=== PATIENT | male | born 1940 | race Caucasian/White ===

== ENCOUNTER 2016-07-29 16:12 | Outpatient (CLI) | payer MEDICARE, OTHER | END 2016-07-29 16:13 | disposition home or self-care (01) | DX: K52.9 Noninfective gastroenteritis and colitis, unspecified (principal) ==

== ENCOUNTER 2016-07-30 09:00 | Outpatient (CLI) | payer MEDICARE, OTHER | END 2016-07-30 09:01 | disposition home or self-care (01) | DX: K52.9 Noninfective gastroenteritis and colitis, unspecified (principal) ==

== ENCOUNTER 2017-02-24 07:30 | Emergency (ER) | payer MEDICARE, OTHER ==
--- NOTE | 2017-02-24 08:03 | ED Physician Documentation ---
History of Present Illness - Stated complaint Stated Complaint: LOW HEART RATE - Chief complaint Chief Complaint: Cardiac - Additonal information Additional information: hx from pt 76 male multiple myeloma s/p stem cell transplant Jul 2015 followed by [facility] ER today at his PMD recommendation pt tells me he a hx of afib in the distant past he is concerned he may be having a fib again, states last week his HR was as low at 41 and his BP is running higher than normal he has not had CP palp soa leg swelling etc no fever cough NVD has had some cramps in his left hand for a week thise concerns were addressed at [facility] clinic 02/16 and an EKG was done showing NSR with PVCs and pt was referred to cardiology and has an appt 04/02 pt called his PMD about this as well yesterday and pt states his PMD advised him to go to the ER for emergent evaluation yesterday and so he came in this morning Review of Systems Constitutional: denies: Fever, Chills Throat: denies: Sore throat Cardiac: denies: Chest pain / pressure, Palpitations Respiratory: denies: Dyspnea GI: denies: Abdominal Pain, Nausea, Vomiting Musculoskeletal: reports: Other (L hand cramps) Neurologic: denies: Generalized weakness Endocrine: denies: Easy bruising / bleeding Immunocompromised: reports: Immunocompromised (> 1 yr out from stem cell transplant) PD PAST MEDICAL HISTORY - Past Medical History Past Medical History: Yes Cardiovascular: Arrhythmia Respiratory: None Endocrine/Autoimmune: None GI: Ulcers : Benign prostate hypertrophy HEENT: None Psych: None Musculoskeletal: Osteoarthritis Derm: None - Past Surgical History General: Appendectomy, Colonoscopy, EGD Ortho: Arthroscopic surgery, Spine surgery, Other HEENT: Cataracts - Present Medications Home Medications: Ambulatory Orders Medication Instructions Recorded Confirmed Acetaminophen [Pain Reliever] 650 mg PO ONCE PRN 11/24/12 02/24/17 Cholecalciferol (Vitamin D3) 5,000 unit PO DAILY 11/24/12 02/24/17 [Vitamin D] Cyanocobalamin/Folic Acid [Vitamin 1 each PO DAILY 11/24/12 02/24/17 F08-Pcfuw Acid Tablet] Glucosamine Sulfate Dipot Chlr 1,500 mg PO DAILY 11/24/12 02/24/17 [Glucosamine] Dutasteride/Tamsulosin HCl [Zulema 0.4 mg PO DAILYWM 10/31/13 02/24/17 0.5-0.4 mg Capsule] Lenalidomide [Revlimid] 15 mg PO DAILY 11/07/15 02/24/17 Acyclovir [Zovirax] 800 mg PO BID 11/26/15 02/24/17 Potassium Chloride [K-Dur] 20 meq PO DAILY 11/26/15 02/24/17 Mv,Ca,Iron,Min/FA/Phytosterol 1 tab PO DAILY 03/17/16 02/24/17 [[facility] Special[facility] Heart Tab] - Allergies Allergies/Adverse Reactions: Allergies Allergy/AdvReac Type Severity Reaction Status Date / Time quinine Allergy Unknown Rash Uncoded 11/24/12 16:03 - Social History Does the pt smoke?: No Smoking Status: Never smoker PD ED PE NORMAL - Vitals Vital signs reviewed: Yes - Neck Neck: Supple, no meningeal sign - Cardiac Cardiac: RRR - Respiratory Respiratory: No respiratory distress, Clear bilaterally - Abdomen Abdomen: Soft, Non tender - Derm Derm: Normal color - Extremities Extremities: No deformity, No tenderness to palpate, Normal ROM s pain, No edema , No calf tenderness / cord (some tender to ant tibial region but no calf or popliteal TTP or cord), Other (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 deformity, 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, 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, thumbs up, [place] sign wrist ext, MSV intact) Results - Vitals Vitals: Vital Signs - 24 hr 02/24/17 02/24/17 07:36 07:39 Temperature 36.2 C L Heart Rate 65 Respiratory 18 Rate Blood Pressure 136/74 H O2 Saturation 98 Oxygen O2 Source Room air - EKG (time done) 0740 Rate: Rate (enter#) Rhythm: NSR [place]: Normal Intervals: Normal PA QRS: Normal Ischemia: Normal ST segments - Labs Labs: Laboratory Tests 02/24/17 02/24/17 02/24/17 07:50 07:50 07:50 WBC 2.8 L RBC 3.72 L Hgb 12.5 L Hct 36.6 L MCV 98.4 H MCH 33.7 H MCHC 34.3 RDW 15.3 H Plt Count 105 L MPV 7.4 Sodium 136 Potassium 4.1 Chloride 102 Carbon Dioxide 25 Anion Gap 9.0 BUN 15 Creatinine 1.0 Estimated GFR (MDRD) 73 L Glucose 115 H Calcium 8.7 Troponin I < 0.04 PD MEDICAL DECISION MAKING - ED course ED course: leukopenia, thrombocytopenia and anemia not new and baseline nl lytes and trop EKG and tele NSR will reassure pt not in a fib and dc with rec to contact PMD to ge event monitor to wear while he awaits his cardiac evaluation undure why L hand is cramping but it is not weak or numb or infected Departure - Departure Disposition: 01 Home, Self Care Clinical Impression: Normal sinus rhythm Condition: Good Follow-Up: Judd Atkins MD [Primary Care Provider] - Comments: In the ER today your heart was in a regular rhythm Your electrolytes were fine too. And the blood test for a heart attack was negative I think it is safe for you to go home at this time I recommend you contact your PMD to get a wear at home heart monitor to determine iof you are having periods of atrial fibrillation not "caught on tape " while you were in the ER. This information would be very helpful for your cardiology follow up on Apr 02 Return to the ER if worse in any way
[2017-02-24 08:21] LABS: BASOPHILS % (AUTO) 1.2 %; EOSINOPHILS # (AUTO) 0.2 10^3/uL (0.0-0.7); EOSINOPHILS % (AUTO) 6.1 %; HCT - HEMATOCRIT 36.6 % (42.0-52.0); HGB - HEMOGLOBIN 12.5 g/dL (14.0-18.0); LYMPHOCYTES # (AUTO) 0.4 10^3/uL (1.5-3.5); LYMPHOCYTES % (AUTO) 14.3 %; MEAN CORPUSCULAR HEMOGLOBIN 33.7 pg (27.0-31.0); MEAN CORPUSCULAR HGB CONC 34.3 g/dL (32.0-36.0); MEAN CORPUSCULAR VOLUME 98.4 fL (80.0-94.0); MEAN PLATELET VOLUME 7.4 fL (7.4-11.4); MONOCYTES # (AUTO) 0.2 10^3/uL (0.0-1.0); MONOCYTES % (AUTO) 7.7 %; NEUTROPHILS % (AUTO) 70.7 %; NUCLEATED RED BLOOD CELLS AUTO 0.1 /100WBC; RED BLOOD COUNT 3.72 10^6/uL (4.70-6.10); RED CELL DISTRIBUTION WIDTH 15.3 % (12.0-15.0); UNCORRECTED WHITE BLOOD COUNT 2.8 x10^3/uL; WHITE BLOOD COUNT 2.8 x10^3/uL (4.8-10.8)
[2017-02-24 08:24] LABS: CALCIUM 8.7 mg/dL (8.5-10.3); POTASSIUM 4.1 mmol/L (3.5-5.0)
[2017-02-24 09:02] LABS: PLATELET ESTIMATE, MANUAL DECREASED (<130,000) (NORMAL); PLATELET MORPHOLOGY NORMAL APPEARANCE (NORMAL)
[2017-02-24 09:09] VITALS: BP 111/72
== END 2017-02-24 09:11 | disposition home or self-care (01) ==
LOC: ED 07:30
DX: R00.8 Other abnormalities of heart beat (principal); R25.2 Cramp and spasm; C90.00 Multiple myeloma not having achieved remission; Z94.84 Stem cells transplant status; D72.819 Decreased white blood cell count, unspecified; D64.9 Anemia, unspecified; D69.6 Thrombocytopenia, unspecified
CPT/HCPCS: 36415; 80048; 84484; 85025; 93005; 99283; 99284

== ENCOUNTER 2017-12-01 11:24 | Outpatient (CLI) | payer MEDICARE, OTHER ==
--- NOTE | 2017-12-01 12:06 | XRAY Report ---
TWO-VIEW CHEST: 12/01/2017 CLINICAL INDICATION: Cough. COMPARISON: 08/29/2016 FINDINGS: Frontal and lateral views of the chest demonstrate a normal cardiac silhouette. Spinal stimulators and right subclavian port are stable. The lungs are hyperinflated, but clear. No effusion or pneumothorax is present. IMPRESSION: HYPERINFLATION, COMPATIBLE WITH COPD. NO EVIDENCE OF ACUTE CARDIOPULMONARY DISEASE. TD: 12/01/2017 12:05
== END 2017-12-01 11:25 | disposition home or self-care (01) ==
LOC: DI 11:24
PROVIDERS: ATTEND Internal Medicine
DX: R91.8 Other nonspecific abnormal finding of lung field (principal)
CPT/HCPCS: 71046

== ENCOUNTER 2017-12-02 10:33 | Emergency (ER) | payer MEDICARE, OTHER ==
--- NOTE | 2017-12-02 11:31 | XRAY Report ---
EXAM: LEFT RIB RADIOGRAPHY CHEST RADIOGRAPHY EXAM DATE: 12/02/2017 11:18 AM. CLINICAL HISTORY: Cough. Left intercostal pain. COMPARISON: Chest radiography 12/01/2017 and 10/29/2015. TECHNIQUE: AP and lateral views of the chest and 2 views of the ribs. 4 images are provided. FINDINGS: Bones: No fracture or bone lesion. Lungs: No focal consolidation. No pneumothorax. No pleural effusions. The lungs are hyperinflated. Mediastinum: Heart and mediastinal contours are unremarkable. Other: Right chest port catheter tip is in the SVC. Spinal stimulator leads project over T9. IMPRESSION: 1. Chest: No acute abnormality or significant change from prior. Probable COPD. 2. Ribs: No acute fracture. [facility] Referring Provider Line: [phone] SITE ID: [id number]
[2017-12-02] MEDS ORDERED: IPRATROPIUM/ALBUTEROL 3 ML NEB INH STA (13:10)
--- NOTE | 2017-12-02 13:14 | ED Physician Documentation ---
PD HPI URI - Stated complaint Stated Complaint: DIFF BREATHING - Chief complaint Chief Complaint: Resp - History obtained from History obtained from: Patient, Family - History of Present Illness Timing - onset: How many weeks ago (1) Timing duration: Weeks (1) Timing details: Gradual onset Pain level max: 3 Pain level now: 3 Associated symptoms: Nasal congestion, Rhinorrhea, Productive cough, Dyspnea ( mild). No: Fever, Chills, Sinus pain, Sore throat, Swollen nodes, Hemoptysis, Chest pain Contributing factors: Sick contact, Immunocompromised (MDS, multiple myeloma) Improves by: Rest Worsened by: Activity, Breathing Similar symptoms before: Diagnosis ("bronchitis") Recently seen: Clinic (for same, has been placed on levauin for the past week.) Review of Systems Ten Systems: 10 systems reviewed and negative Constitutional: denies: Fever, Chills Ears: denies: Ear pain Nose: reports: Rhinorrhea / runny nose, Congestion Throat: denies: Sore throat Cardiac: denies: Chest pain / pressure Respiratory: reports: Dyspnea, Cough, Wheezing GI: denies: Nausea, Vomiting : denies: Dysuria Skin: denies: Rash Musculoskeletal: denies: Neck pain, Back pain Neurologic: denies: Headache PD PAST MEDICAL HISTORY - Past Medical History Past Medical History: Yes Cardiovascular: Arrhythmia Respiratory: None Endocrine/Autoimmune: None GI: Ulcers : Benign prostate hypertrophy HEENT: None Psych: None Musculoskeletal: Osteoarthritis Derm: None - Past Surgical History General: Appendectomy, Colonoscopy, EGD Ortho: Arthroscopic surgery, Spine surgery, Other HEENT: Cataracts - Present Medications Home Medications: Ambulatory Orders Medication Instructions Recorded Confirmed Acetaminophen [Pain Reliever] 650 mg PO ONCE PRN 11/24/12 11/09/17 Cholecalciferol (Vitamin D3) 5,000 unit PO DAILY 11/24/12 11/09/17 [Vitamin D] Cyanocobalamin/Folic Acid [Vitamin 1 each PO DAILY 11/24/12 11/09/17 D23-Kdhin Acid Tablet] Glucosamine Sulfate Dipot Chlr 1,500 mg PO DAILY 11/24/12 11/09/17 [Glucosamine] Dutasteride/Tamsulosin HCl [Zulema 0.4 mg PO DAILYWM 10/31/13 11/09/17 0.5-0.4 mg Capsule] Lenalidomide [Revlimid] 10 mg PO DAILY 11/07/15 11/09/17 Acyclovir [Zovirax] 800 mg PO BID 11/26/15 11/09/17 Potassium Chloride [K-Dur] 20 meq PO DAILY 11/26/15 11/09/17 Mv,Ca,Iron,Min/FA/Phytosterol 1 tab PO DAILY 03/17/16 11/09/17 [[facility] Special[facility] Heart Tab] Lenalidomide [Revlimid] 5 mg PO DAILY 10/01/17 11/09/17 Albuterol Sulf [Ventolin Hfa 1 - 2 puffs INH Q4HR PRN #1 inhaler 12/02/17 Inhaler] Benzonatate [Tessalon Perle] 100 - 200 mg PO TID PRN #30 capsule 12/02/17 Cetirizine [ZyrTEC] 10 mg PO DAILY PRN #30 tablet 12/02/17 Hydrocodone/Chlorpheniramine 5 ml PO BID #120 ml 12/02/17 [Vituz Solution] - Allergies Allergies/Adverse Reactions: Allergies Allergy/AdvReac Type Severity Reaction Status Date / Time quinine Allergy Unknown Rash Uncoded 11/24/12 16:03 - Social History Does the pt smoke?: No Smoking Status: Never smoker PD ED PE NORMAL - Vitals Vital signs reviewed: Yes - General General: Alert and oriented X 3, No acute distress - HEENT HEENT: Moist mucous membranes - Neck Neck: Supple, no meningeal sign - Cardiac Cardiac: RRR - Respiratory Respiratory: No respiratory distress, Other (wheezing, rhonchi B) - Abdomen Abdomen: Soft, Non tender, Non distended - Derm Derm: Warm and dry - Extremities Extremities: No edema, No calf tenderness / cord - Neuro Neuro: Alert and oriented X 3 - Psych Psych: Normal mood, Normal affect Results - Vitals Vitals: Vital Signs - 24 hr 12/02/17 12/02/17 12/02/17 10:42 12:45 13:28 Temperature 36.8 C Heart Rate 96 96 93 Respiratory 18 20 22 Rate Blood Pressure 121/73 142/79 H O2 Saturation 93 98 12/02/17 12/02/17 14:12 14:48 Temperature Heart Rate 101 H 105 H Respiratory 24 20 Rate Blood Pressure 122/79 O2 Saturation 96 Oxygen O2 Source Room air - Labs Labs: Laboratory Tests 12/02/17 12/02/1718 13:15 13:15 13:15 WBC 2.1 L RBC 3.87 L Hgb 13.2 L Hct 38.3 L MCV 99.0 H MCH 34.2 H MCHC 34.6 RDW 15.1 H Plt Count 95 L MPV 6.9 L Neut # Not Reportable Lymph # Not Reportable [place] # Not Reportable Eos # Not Reportable Baso # Not Reportable Absolute Nucleated RBC Not Reportable Total Counted 100 Band Neuts % (Manual) 2 Reactive Lymphs % (Man) 4 Abnorm Lymph % (Manual) 0 Nucleated RBC % Not Reportable Neutrophils # (Manual) 1.1 L Lymphocytes # (Manual) 0.7 L Monocytes # (Manual) 0.2 Eosinophils # (Manual) 0.1 Basophils # (Manual) 0.0 Differential Comment MANUAL DIFFERENTIAL WBC Morphology 2+ TOXIC GRANULATION Sodium 129 L Potassium 4.0 Chloride 94 L Carbon Dioxide 26 Anion Gap 9.0 BUN 13 Creatinine 1.1 Estimated GFR (MDRD) 65 L Glucose 122 H Lactic Acid 1.7 Calcium 8.8 Total Bilirubin 1.6 H AST 44 H ALT 84 H Alkaline Phosphatase 77 Total Protein 7.7 Albumin 4.0 Globulin 3.7 Albumin/Globulin Ratio 1.1 Lipase 22 - Rads (name of study) cxr Radiology: Prelim report reviewed, EMP read contemporaneously, See rad report ( Chest: No acute abnormality or significant change from prior. Probable COPD. Ribs: no acute fracture) PD MEDICAL DECISION MAKING - ED course Complexity details: reviewed old records (clinic records from last week.), reviewed results, re-evaluated patient, considered differential, d/w patient, d/ w family ED course: Patient is a 77-year-old male with a history of myelodysplastic syndrome and multiple myeloma who is immunosuppressed, currently placed on Levaquin but states he is having a hard time breathing and increased coughing. He had diminished breath sounds bilaterally with wheezing and rhonchi. Significantly improved throughout the emergency department stay with nebulizer treatment. We will trial him on a short course of steroids as well as albuterol for home. We will also prescribe antitussives medication and follow-up closely with his doctor. States his white blood cell count is always low. States it is normal 1 point something. Patient is well-appearing, nontoxic. Afebrile. No hypoxia. No respiratory distress after treatment. Patient and family counseled regarding signs and symptoms for which I believe and urgent re- evaluation would be necessary. Patient with good understanding of and agreement to plan and is comfortable going home at this time This document was made in part using voice recognition software. While efforts are made to proofread this document, sound alike and grammatical errors may occur. Departure - Departure Disposition: 01 Home, Self Care Clinical Impression: Upper respiratory tract infection Qualifiers: URI type: unspecified viral URI Qualified Code(s): J06.9 - Acute upper respiratory infection, unspecified Condition: Good Instructions: ED Viral Syndrome Follow-Up: Yury Jung MD [Primary Care Provider] - Within 1 week Prescriptions: Albuterol Sulf [Ventolin Hfa Inhaler] 1 - 2 puffs INH Q4HR PRN #1 inhaler PRN Reason: Shortness Of Air/Wheezing Benzonatate [Tessalon Perle] 100 - 200 mg PO TID PRN #30 capsule PRN Reason: Cough Cetirizine [ZyrTEC] 10 mg PO DAILY PRN #30 tablet PRN Reason: Nasal Congestion Hydrocodone/Chlorpheniramine [Vituz Solution] 5 ml PO BID #120 ml Comments: Return if you worsen. Take all medications as prescribed. Do not drink alcohol or drive while on narcotic pain medicine. Note that many narcotic pain relievers also contain tylenol/acetaminophen. Please ensure that your total dose of acetaminophen from all sources does not exceed 3 grams (3000mg) per day. You may constipated on this medication, take a stool softener such as "Colace" twice a day while you are on it. Also recommend a [id number] laxative such as senna or MiraLAX any day that you do not have a bowel movement. If you received narcotic pain medication in the emergency department, do not drive or operate machinery for the next 24 hours. Discharge Date/Time: 12/02/17 14:53
[2017-12-02 13:24] LABS: BASOPHILS % (AUTO) 1.1 %; EOSINOPHILS % (AUTO) 4.3 %; HGB - HEMOGLOBIN 13.2 g/dL (14.0-18.0); LYMPHOCYTES % (AUTO) 23.2 %; MEAN CORPUSCULAR HEMOGLOBIN 34.2 pg (27.0-31.0); MEAN CORPUSCULAR HGB CONC 34.6 g/dL (32.0-36.0); MEAN PLATELET VOLUME 6.9 fL (7.4-11.4); MONOCYTES % (AUTO) 16.6 %; NEUTROPHILS % (AUTO) 54.8 %; PLT - PLATELET COUNT 95 10^3/uL (130-450); RED BLOOD COUNT 3.87 10^6/uL (4.70-6.10); RED CELL DISTRIBUTION WIDTH 15.1 % (12.0-15.0); WHITE BLOOD COUNT 2.1 x10^3/uL (4.8-10.8)
[2017-12-02 13:28] LABS: ABNORMAL LYMPHS % (MANUAL) 0 %
[2017-12-02 13:35] LABS: ALBUMIN/GLOBULIN RATIO 1.1 (1.0-2.2); BILIRUBIN,TOTAL 1.6 mg/dL (0.2-1.0); CALCIUM 8.8 mg/dL (8.5-10.3); CREATININE 1.1 mg/dL (0.6-1.2); TOTAL PROTEIN 7.7 g/dL (6.7-8.2)
[2017-12-02 13:51] LABS: BAND NEUTROPHILS % (MANUAL) 2 %; DIFFERENTIAL COMMENT MANUAL DIFFERENTIAL; EOSINOPHILS # (MANUAL) 0.1 10^3/uL (0-0.7); LYMPHOCYTES # (MANUAL) 0.7 10^3/uL (1.5-3.5); LYMPHOCYTES % (MANUAL) 30 %; MONOCYTES # (MANUAL) 0.2 10^3/uL (0.0-1.0); NEUTROPHILS # (MANUAL) 1.1 10^3/uL (1.5-6.6); NEUTROPHILS % (MANUAL) 52 %
[2017-12-02] MEDS ORDERED: ALBUTEROL NEB 2.5 MG/3 ML INH STA (14:07)
[2017-12-02] MEDS ORDERED: predniSONE 20 MG TABLET PO STA (14:37)
[2017-12-02 14:48] VITALS: BP 122/79
== END 2017-12-02 14:53 | disposition home or self-care (01) ==
LOC: ED 10:33
DX: J06.9 Acute upper respiratory infection, unspecified (principal); D46.9 Myelodysplastic syndrome, unspecified; C90.00 Multiple myeloma not having achieved remission
CPT/HCPCS: 36415; 71046; 71100; 80053; 83605; 83690; 85025; 94640; 94664; 99283; 99284; J7512

== ENCOUNTER 2017-12-28 11:33 | Outpatient (CLI) | payer MEDICARE, OTHER ==
--- NOTE | 2017-12-28 20:32 | XRAY Report ---
RIGHT RIBS: 12/28/2017 HISTORY: Posterior upper rib pain. FINDINGS: Two views of the right ribs are performed. No definite fracture, bone destruction, periosteal reaction or other acute right rib pathology. Port-A-Cath in place. Neural stimulator in the spine. Degenerative change in the spine. IMPRESSION: NEGATIVE RIGHT RIBS. TD: 12/28/2017 17:36
== END 2017-12-28 11:34 | disposition home or self-care (01) ==
LOC: DI 11:33
PROVIDERS: ATTEND Internal Medicine Hematology & Oncology
DX: R07.81 Pleurodynia (principal); C90.00 Multiple myeloma not having achieved remission

== ENCOUNTER 2018-04-12 10:37 | Emergency (ER) | payer MEDICARE, OTHER ==
[2018-04-12] MEDS ORDERED: BUFFERED LIDOCAINE 10 ML SYRINGE SUBQ ONE (12:03)
[2018-04-12] MEDS ORDERED: BUFFERED LIDOCAINE 10 ML SYRINGE ONE (12:04)
--- NOTE | 2018-04-12 12:05 | ED Physician Documentation ---
History of Present Illness - Stated complaint Stated Complaint: ABCESS ON LEFT ARM - Chief complaint Chief Complaint: Trauma Sunday - History obtained from History obtained from: Patient - History of Present Illness Timing: Other (He is only had a little bit of a lump on the left chest wall but became painful and inflamed 2 weeks ago. He was seen in clinic and put on some topical antibiotic but it continues to worsen. No fevers.) Review of Systems Constitutional: denies: Fever, Chills Ears: reports: Reviewed and negative GI: denies: Abdominal Pain, Nausea, Vomiting PD PAST MEDICAL HISTORY - Past Medical History Past Medical History: Yes Cardiovascular: Arrhythmia Respiratory: None Endocrine/Autoimmune: None GI: Ulcers : Benign prostate hypertrophy HEENT: None Psych: None Musculoskeletal: Osteoarthritis Derm: None - Past Surgical History Past Surgical History: Yes General: Appendectomy, Colonoscopy, EGD Ortho: Arthroscopic surgery, Spine surgery, Other HEENT: Cataracts - Present Medications Home Medications: Ambulatory Orders Medication Instructions Recorded Confirmed Acetaminophen [Pain Reliever] 650 mg PO ONCE PRN 11/24/12 04/12/18 Cholecalciferol (Vitamin D3) 5,000 unit PO DAILY 11/24/12 04/12/18 [Vitamin D] Cyanocobalamin/Folic Acid [Vitamin 1 each PO DAILY 11/24/12 04/12/18 A29-Ucsvu Acid Tablet] Glucosamine Sulfate Dipot Chlr 1,500 mg PO DAILY 11/24/12 04/12/18 [Glucosamine] Dutasteride/Tamsulosin HCl [Zulema 0.4 mg PO DAILYWM 10/31/13 04/12/18 0.5-0.4 mg Capsule] Acyclovir [Zovirax] 800 mg PO BID 11/26/15 04/12/18 Potassium Chloride [K-Dur] 20 meq PO DAILY 11/26/15 04/12/18 Mv,Ca,Iron,Min/FA/Phytosterol 1 tab PO DAILY 03/17/16 04/12/18 [[facility] Specialist Heart Tab] Lenalidomide [Revlimid] 5 mg PO DAILY 10/01/17 04/12/18 Albuterol Sulf [Ventolin Hfa 1 - 2 puffs INH Q4HR PRN #1 inhaler 12/02/17 04/12/18 Inhaler] Benzonatate [Tessalon Perle] 100 - 200 mg PO TID PRN #30 capsule 12/02/17 04/12/18 Cetirizine [ZyrTEC] 10 mg PO DAILY PRN #30 tablet 12/02/17 04/12/18 Hydrocodone/Chlorpheniramine 5 ml PO BID #120 ml 12/02/17 04/12/18 [Vituz Solution] Acyclovir 800 tab PO BID 04/12/18 04/12/18 Cephalexin [Keflex] 500 mg PO Q6H #28 capsule 04/12/18 Gabapentin [Gralise] 3 tab ORAL DAILY 04/12/18 04/12/18 Hydrocodone/Acetaminophen 1 - 2 each PO Q6H PRN #10 tablet 04/12/18 [Hydrocodon-Acetaminophen 5-325] Sulfamethoxazole/Trimethoprim 1 each PO BID #14 tablet 04/12/18 [Sulfamethoxazole-Tmp Ds Tablet] - Allergies Allergies/Adverse Reactions: Allergies Allergy/AdvReac Type Severity Reaction Status Date / Time quinine Allergy Unknown Rash Uncoded 04/12/18 10:53 - Social History Does the pt smoke?: No Smoking Status: Never smoker Does the pt drink ETOH?: No - Immunizations Immunizations are current?: Yes PD ED PE NORMAL - Vitals Vital signs reviewed: Yes - General General: Alert and oriented X 3, No acute distress - Derm Derm: Other (On the left lateral chest wall there appears to be an infected sebaceous cyst, about 3 x 2 cm with surrounding cellulitis) - Neuro Neuro: Alert and oriented X 3, Normal speech - Psych Psych: Normal mood, Normal affect Results - Vitals Vitals: Vital Signs - 24 hr 04/12/18 10:48 Temperature 36.2 C L Heart Rate 67 Respiratory 16 Rate Blood Pressure 116/74 O2 Saturation 94 Oxygen O2 Source Room air Procedures - Abscess I&D (location) L chest wall Preparation: Betadine, Lidocaine 1% Incision: Incised with scalpel, Purulent drainage (and sebum), Loculations broken, Packed (with 1/4 inch packing), Culture obtained Other: Pt tolerated well, Dressing applied, Antibiotic prescribed PD MEDICAL DECISION MAKING - Sepsis Event Vital Signs: Vital Signs - 24 hr 04/12/18 10:48 Temperature 36.2 C L Heart Rate 67 Respiratory 16 Rate Blood Pressure 116/74 O2 Saturation 94 Oxygen O2 Source Room air Departure - Departure Disposition: 01 Home, Self Care Clinical Impression: Abscess Condition: Good Record reviewed to determine appropriate education?: Yes Instructions: ED Abscess IandD Prescriptions: Cephalexin [Keflex] 500 mg PO Q6H #28 capsule Hydrocodone/Acetaminophen [Hydrocodon-Acetaminophen 5-325] 1 - 2 each PO Q6H PRN #10 tablet PRN Reason: pain Sulfamethoxazole/Trimethoprim [Sulfamethoxazole-Tmp Ds Tablet] 1 each PO BID #14 tablet Comments: We are performing a wound culture, the results should be done in 48-72 hours. If antibiotic change is necessary we will call you. Return if worse in the meantime, especially if you develop increased pain, fevers, cannot keep down the medication. Otherwise follow-up with your physician in approximately 2-3 days.
[2018-04-12 12:35] VITALS: BP 139/82
== END 2018-04-12 12:30 | disposition home or self-care (01) ==
LOC: ED 10:37
DX: L02.213 Cutaneous abscess of chest wall (principal); L03.313 Cellulitis of chest wall; L72.3 Sebaceous cyst
CPT/HCPCS: 10060; 87070; 87205; 99283

== ENCOUNTER 2018-08-09 15:21 | Outpatient (CLI) | payer MEDICARE, BC ==
[2018-08-09 18:19] LABS: HEMOGLOBIN A1C 0.33 g/dL; HEMOGLOBIN A1C % 5.5 % (4.6-6.2)
[2018-08-09 18:29] LABS: ALBUMIN/GLOBULIN RATIO 1.1 (1.0-2.2); BILIRUBIN,TOTAL 1.5 mg/dL (0.2-1.0); CALCIUM 9.1 mg/dL (8.5-10.3); CREATININE 0.9 mg/dL (0.6-1.2); TOTAL PROTEIN 7.7 g/dL (6.7-8.2)
== END 2018-08-09 15:22 | disposition home or self-care (01) ==
LOC: LAB.F 15:21
PROVIDERS: ATTEND Internal Medicine
DX: R35.8 Other polyuria (principal); N39.0 Urinary tract infection, site not specified
CPT/HCPCS: 36415; 80053; 83036; 87086; 87181

== ENCOUNTER 2018-10-25 13:34 | Emergency (ER) | payer MEDICARE, BC ==
[2018-10-25] MEDS ORDERED: DEXAMETHASONE 10 MG/ML VIAL PO STA (15:57)
[2018-10-25] MEDS ORDERED: BENZONATATE 100 MG CAPSULE PO STA (15:58)
[2018-10-25] MEDS ORDERED: CHERRY SYRUP 10 ML UDC PO ONE (16:11)
--- NOTE | 2018-10-25 16:48 | XRAY Report ---
Reason: cough Procedure Date: 10/25/2018 Accession Number: [id number] / [id number] Procedure: XR - Chest 2 View X-Ray CPT Code: 45606 FULL RESULT: EXAM: CHEST RADIOGRAPHY EXAM DATE: 10/25/2018 04:29 PM. CLINICAL HISTORY: Cough. COMPARISON: CHEST 1 VIEW 09/02/2018 11:11 AM. TECHNIQUE: 2 views. FINDINGS: Lungs/Pleura: Hyperexpanded with flattened diaphragm compatible with COPD. No definite acute infiltrate, consolidation, effusion, or pneumothorax. Mediastinum: Normal heart size, unchanged. Upper lobe vessels not distended. Other: Right Port-A-Cath. Degenerative changes and other chronic findings. IMPRESSION: No acute disease. [facility]
--- NOTE | 2018-10-25 16:52 | ED Physician Documentation ---
PD HPI URI - Stated complaint Stated Complaint: CONGESTED/CHEST PX - Chief complaint Chief Complaint: Resp - History obtained from History obtained from: Patient, Family - History of Present Illness Timing - onset: How many days ago (3) Timing duration: Days (3) Timing details: Gradual onset, Still present Associated symptoms: Fever, Nasal congestion, Rhinorrhea, Sinus pain, Productive cough Contributing factors: Sick contact Improves by: Rest, Medication Worsened by: Activity Similar symptoms before: Diagnosis (pneumonia) Recently seen: Other ([facility]) - Additional information Additional information: 78-year-old male patient of the [facility] clinic who has myeloproliferative disorder and is under treatment for this has developed URI symptoms 3 days ago. He has a cough he is producing some clear phlegm. He is scheduled to get a sub-q injection today at the [facility] clinic. He will need blood soon as well. Review of Systems Constitutional: denies: Fever Eyes: denies: Decreased vision Ears: denies: Ear pain Nose: reports: Rhinorrhea / runny nose, Congestion Throat: reports: Sore throat Cardiac: denies: Chest pain / pressure, Palpitations Respiratory: reports: Cough. denies: Dyspnea GI: denies: Abdominal Pain, Nausea, Vomiting : denies: Dysuria, Frequency PD PAST MEDICAL HISTORY - Past Medical History Past Medical History: Yes Cardiovascular: Arrhythmia Respiratory: None Neuro: None Endocrine/Autoimmune: None GI: Ulcers : Benign prostate hypertrophy HEENT: None Psych: None Musculoskeletal: Osteoarthritis Derm: None Other Past Medical History: multiple myeloma - Past Surgical History Past Surgical History: Yes General: Appendectomy, Colonoscopy, EGD Ortho: Arthroscopic surgery, Spine surgery, Other HEENT: Cataracts - Present Medications Home Medications: Ambulatory Orders Medication Instructions Recorded Confirmed Acetaminophen [Pain Reliever] 650 mg PO Q4H PRN 11/24/12 09/27/18 Cholecalciferol (Vitamin D3) 5,000 unit PO DAILY 11/24/12 09/27/18 [Vitamin D3] Cyanocobalamin/Folic Acid [Vitamin 1 each PO DAILY 11/24/12 09/27/18 M75-Zvuyz Acid Tablet] Glucosamine Sulfate Dipot Chlr 1,500 mg PO DAILY 11/24/12 09/27/18 [Glucosamine] Potassium Chloride [K-Dur] 20 meq PO DAILYWM 11/26/15 09/27/18 Mv,Ca,Iron,Min/FA/Phytosterol 1 tab PO DAILY 03/17/16 09/27/18 [[facility] Tab] Finasteride 5 mg PO DAILY 09/02/18 09/27/18 Gabapentin 1,800 mg PO QPM 09/02/18 09/27/18 Tamsulosin [Flomax] 0.4 mg PO BID 09/02/18 09/27/18 Amox/Clav 875/125 [Augmentin 1 tab PO BID 10 Days #19 tablet 09/05/18 09/27/18 875/125] Ondansetron Odt [Zofran Odt] 8 mg ORAL Q8HR PRN 09/20/18 09/27/18 Acyclovir 800 tab PO BID 30 Days #60 tablet 09/27/18 Fluconazole 400 mg PO DAILY 30 Days #30 tablet 09/27/18 Sulfamethoxazole/Trimethoprim 1 each PO DAILY 30 Days #30 tablet 09/27/18 [Bactrim 400-80 mg Tablet] Amox/Clav 875/125 [Augmentin] 1 each PO Q12H #20 tablet 10/25/18 Benzonatate [Tessalon Perle] 100 - 200 mg PO TID PRN #30 capsule 10/25/18 - Allergies Allergies/Adverse Reactions: Allergies Allergy/AdvReac Type Severity Reaction Status Date / Time quinine Allergy Unknown Rash Verified 10/25/18 13:43 - Social History Does the pt smoke?: No Smoking Status: Never smoker Does the pt drink ETOH?: No Does the pt have substance abuse?: No - Immunizations Immunizations are current?: Yes - POLST Patient has POLST: Yes POLST Status: Full Code PD ED PE NORMAL - Vitals Vital signs reviewed: Yes (hypertensive ) - General General: Alert and oriented X 3, No acute distress, Well developed/nourished - HEENT HEENT: Atraumatic, PERRL, EOMI, Other (both TM's have a minimal inflamation to the central TM over the umbo with rounding of the umbo and redness. ) - Neck Neck: Supple, no meningeal sign, No bony TTP - Cardiac Cardiac: RRR, No murmur - Respiratory Respiratory: No respiratory distress, Clear bilaterally - Abdomen Abdomen: Soft, Non tender - Back Back: No CVA TTP - Derm Derm: Warm and dry, No rash, Other (pale ) - Extremities Extremities: No deformity, No edema - Neuro Neuro: Alert and oriented X 3, cutter hot knife 2-12 intact, No motor deficit, No sensory deficit, Normal speech Eye Opening: Spontaneous Motor: Obeys Commands Verbal: Oriented GCS Score: 15 - Psych Psych: Normal mood, Normal affect Results - Vitals Vitals: Vital Signs - 24 hr 10/25/18 10/25/18 13:40 15:36 Temperature 36.7 C Heart Rate 79 68 Respiratory 18 18 Rate Blood Pressure 139/85 H 136/86 H O2 Saturation 96 98 Oxygen O2 Source Room air - Labs Labs: Laboratory Tests 10/25/18 10/25/18 10/25/18 16:52 16:52 16:52 WBC 1.7 L* RBC 2.23 L Hgb 8.3 L Hct 23.7 L MCV 106.5 H MCH 37.4 H MCHC 35.1 RDW 24.2 H Plt Count 109 L MPV 7.3 L Neut # (Auto) Not Reportable Lymph # (Auto) Not Reportable [place] # (Auto) Not Reportable Eos # (Auto) Not Reportable Baso # (Auto) Not Reportable Absolute Nucleated RBC Not Reportable Total Counted 100 Band Neuts % (Manual) 0 Abnorm Lymph % (Manual) 0 Nucleated RBC % Not Reportable Neutrophils # (Manual) 0.8 L Lymphocytes # (Manual) 0.6 L Monocytes # (Manual) 0.3 Eosinophils # (Manual) 0.0 Basophils # (Manual) 0.0 Differential Comment MANUAL DIFFERENTIAL Manual Slide Review Indicated WBC Morphology NORMAL APPEARANCE Platelet Estimate DECREASED (<130,000) Platelet Morphology NORMAL APPEARANCE RBC Morph Micro Appear 2+ MACROCYTOSIS Sodium 134 L Potassium 3.8 Chloride 98 L Carbon Dioxide 25 Anion Gap 11.0 BUN 23 H Creatinine 1.0 Estimated GFR (MDRD) 72 L Glucose 132 H Lactic Acid Calcium 9.4 Total Bilirubin 0.9 AST 43 H ALT 59 Alkaline Phosphatase 53 Troponin I < 0.04 Total Protein 7.1 Albumin 4.0 Globulin 3.1 Albumin/Globulin Ratio 1.3 Lipase 22 Influenza A (Rapid) Influenza B (Rapid) 10/25/18 10/25/18 16:52 17:01 WBC RBC Hgb Hct MCV MCH MCHC RDW Plt Count MPV Neut # (Auto) Lymph # (Auto) [place] # (Auto) Eos # (Auto) Baso # (Auto) Absolute Nucleated RBC Total Counted Band Neuts % (Manual) Abnorm Lymph % (Manual) Nucleated RBC % Neutrophils # (Manual) Lymphocytes # (Manual) Monocytes # (Manual) Eosinophils # (Manual) Basophils # (Manual) Differential Comment Manual Slide Review WBC Morphology Platelet Estimate Platelet Morphology RBC Morph Micro Appear Sodium Potassium Chloride Carbon Dioxide Anion Gap BUN Creatinine Estimated GFR (MDRD) Glucose Lactic Acid 1.9 Calcium Total Bilirubin AST ALT Alkaline Phosphatase Troponin I Total Protein Albumin Globulin Albumin/Globulin Ratio Lipase Influenza A (Rapid) Negative Influenza B (Rapid) Negative - Rads (name of study) chest 2 view Radiology: Prelim report reviewed (Impression: No acute disease.), EMP read indepedently, See rad report PD MEDICAL DECISION MAKING - ED course Complexity details: reviewed results, re-evaluated patient, considered different ial, d/w patient, d/w family ED course: 78-year-old male with an upper respiratory infection is undergoing treatment for myelodysplastic syndrome and he is immunocompromised. He does have medications that he takes on a regular basis including acyclovir Bactrim and fluconazole. He was on a course of Augmentin 2 weeks ago. He has now developed a cough and congestion has minimal findings on exam to indicate otitis as a source and he does not appear to have pneumonia. The [facility] is come over to the emergency department and in given the patient his subcutaneous injection today. His blood counts are low and he will likely need blood tomorrow. Departure - Departure Disposition: 01 Home, Self Care Clinical Impression: Otitis media Qualifiers: Otitis media type: suppurative Chronicity: acute Laterality: bilateral Recurrence: not specified as recurrent Spontaneous tympanic membrane rupture: without spontaneous rupture Qualified Code(s): H66.003 - Acute suppurative otitis media without spontaneous rupture of ear drum, bilateral Anemia Qualifiers: Anemia type: bone marrow failure Bone marrow failure anemia type: pancytopenia, other Qualified Code(s): D61.818 - Other pancytopenia Condition: Stable Instructions: ED Otitis Media Acute Adult Follow-Up: Geronimo Bella MD [Primary Care Provider] - Prescriptions: Amox/Clav 875/125 [Augmentin] 1 each PO Q12H #20 tablet Benzonatate [Tessalon Perle] 100 - 200 mg PO TID PRN #30 capsule PRN Reason: Cough Comments: Your hematocrit today is 23.7 and you will likely need blood in the next several days. Follow up with the [facility] clinic as planned tomorrow.
[2018-10-25 17:12] LABS: EOSINOPHILS % (AUTO) 3.5 %; HGB - HEMOGLOBIN 8.3 g/dL (14.0-18.0); LYMPHOCYTES % (AUTO) 31.5 %; MEAN CORPUSCULAR HEMOGLOBIN 37.4 pg (27.0-31.0); MEAN CORPUSCULAR HGB CONC 35.1 g/dL (32.0-36.0); MEAN CORPUSCULAR VOLUME 106.5 fL (80.0-94.0); MEAN PLATELET VOLUME 7.3 fL (7.4-11.4); MONOCYTES % (AUTO) 9.8 %; NEUTROPHILS % (AUTO) 55.2 %; PLT - PLATELET COUNT 109 10^3/uL (130-450); RED BLOOD COUNT 2.23 10^6/uL (4.70-6.10); RED CELL DISTRIBUTION WIDTH 24.2 % (12.0-15.0)
[2018-10-25 17:13] LABS: WHITE BLOOD COUNT 1.7 x10^3/uL (4.8-10.8)
[2018-10-25 17:15] LABS: ABNORMAL LYMPHS % (MANUAL) 0 %; BAND NEUTROPHILS % (MANUAL) 0 %
[2018-10-25 17:23] LABS: ALBUMIN/GLOBULIN RATIO 1.3 (1.0-2.2); BILIRUBIN,TOTAL 0.9 mg/dL (0.2-1.0); CALCIUM 9.4 mg/dL (8.5-10.3); TOTAL PROTEIN 7.1 g/dL (6.7-8.2)
[2018-10-25 17:57] LABS: LYMPHOCYTES # (MANUAL) 0.6 10^3/uL (1.5-3.5); LYMPHOCYTES % (MANUAL) 34 %; MONOCYTES # (MANUAL) 0.3 10^3/uL (0.0-1.0); NEUTROPHILS # (MANUAL) 0.8 10^3/uL (1.5-6.6); NEUTROPHILS % (MANUAL) 49 %
[2018-10-25 17:58] LABS: DIFFERENTIAL COMMENT MANUAL DIFFERENTIAL; PLATELET ESTIMATE, MANUAL DECREASED (<130,000) (NORMAL); PLATELET MORPHOLOGY NORMAL APPEARANCE (NORMAL)
[2018-10-25 18:09] VITALS: BP 143/80
== END 2018-10-25 18:17 | disposition home or self-care (01) ==
LOC: ED 13:34
DX: H66.003 Acute suppurative otitis media without spontaneous rupture of ear drum, bilateral (principal); D61.818 Other pancytopenia; J06.9 Acute upper respiratory infection, unspecified; C94.6 Myelodysplastic disease, not elsewhere classified; Z85.820 Personal history of malignant melanoma of skin
CPT/HCPCS: 36415; 71046; 80053; 83605; 83690; 84484; 85025; 87040; 87275; 87276; 99283; A9270

== ENCOUNTER 2019-02-07 08:00 | Outpatient (CLI) | payer MEDICARE, BC, OTHER | END 2019-02-07 23:59 | disposition home or self-care (01) | LOC: LAB.R 08:00 | PROVIDERS: ATTEND Family Medicine | DX: M10.9 Gout, unspecified (principal) | CPT/HCPCS: 84550 ==

== ENCOUNTER 2019-04-14 07:22 | Emergency (ER) | payer MEDICARE, BC ==
[2019-04-14] MEDS ORDERED: KETOROLAC 30 MG/ML VIAL IVP STA (08:44)
--- NOTE | 2019-04-14 08:44 | ED Physician Documentation ---
History of Present Illness - Stated complaint Stated Complaint: LT HIP PX - Chief complaint Chief Complaint: Ext Problem - History obtained from History obtained from: Patient, Family - History of Present Illness Timing: How many weeks ago (3) - Additonal information Additional information: 78-year-old male with a history of multiple myeloma has developed some pain in his left hip area over the back and this is progressed over the past 3 weeks. He does have a spinal stimulator in place. His pain is to palpation over the sacroiliac joint. Review of Systems Constitutional: denies: Fever Nose: denies: Congestion Respiratory: denies: Cough GI: denies: Vomiting Musculoskeletal: reports: Back pain. denies: Neck pain Neurologic: denies: Generalized weakness, Focal weakness, Numbness PD PAST MEDICAL HISTORY - Past Medical History Past Medical History: Yes Cardiovascular: Arrhythmia Respiratory: None Neuro: None Endocrine/Autoimmune: None GI: Ulcers : Benign prostate hypertrophy HEENT: None Psych: None Musculoskeletal: Osteoarthritis, Chronic back pain Derm: None Other Past Medical History: MDS, multiple myeloma - Past Surgical History Past Surgical History: Yes General: Appendectomy, Colonoscopy, EGD Ortho: Arthroscopic surgery, Spine surgery, Other HEENT: Cataracts - Present Medications Home Medications: Ambulatory Orders Medication Instructions Recorded Confirmed Acetaminophen [Pain Reliever] 650 mg PO Q4H PRN 11/24/12 04/04/19 Cholecalciferol (Vitamin D3) 5,000 unit PO DAILY 11/24/12 04/04/19 [Vitamin D3] Cyanocobalamin/Folic Acid [Vitamin 1 each PO DAILY 11/24/12 04/04/19 K41-Tfsez Acid Tablet] Glucosamine Sulfate Dipot Chlr 1,500 mg PO DAILY 11/24/12 04/04/19 [Glucosamine] Potassium Chloride [K-Dur] 20 meq PO DAILYWM 11/26/15 04/04/19 Mv,Ca,Iron,Min/FA/Phytosterol 1 tab PO DAILY 03/17/16 04/04/19 [[facility] Tab] Finasteride 5 mg PO DAILY 09/02/18 04/04/19 Gabapentin 1,800 mg PO QPM 09/02/18 04/04/19 Tamsulosin [Flomax] 0.4 mg PO BID 09/02/18 04/04/19 Ondansetron Odt [Zofran Odt] 8 mg ORAL Q8HR PRN 09/20/18 04/04/19 Acyclovir 800 tab PO BID 30 Days #60 tablet 09/27/18 04/04/19 Fluconazole 400 mg PO DAILY 30 Days #30 tablet 09/27/18 04/04/19 Cyclobenzaprine [Flexeril] 10 mg PO TID PRN #20 tablet 04/14/19 Hydrocodone/Acetaminophen 1 - 2 each PO Q6H PRN #14 tablet 04/14/19 [Hydrocodon-Acetaminophen 5-325] - Allergies Allergies/Adverse Reactions: Allergies Allergy/AdvReac Type Severity Reaction Status Date / Time quinine Allergy Unknown Rash Verified 04/14/19 07:35 - Social History Does the pt smoke?: No Smoking Status: Never smoker Does the pt drink ETOH?: No Does the pt have substance abuse?: No - Immunizations Immunizations are current?: Yes - POLST Patient has POLST: Yes POLST Status: Full Code PD ED PE NORMAL - Vitals Vital signs reviewed: Yes (hypertensive mild ) - General General: Alert and oriented X 3, No acute distress, Well developed/nourished, Other (A broad smile and in good spirits. ) - HEENT HEENT: Atraumatic, PERRL, EOMI - Respiratory Respiratory: No respiratory distress - Derm Derm: Normal color, Warm and dry, No rash - Extremities Extremities: No deformity, No edema, Other (There is specific point tenderness to the left sacroilliac area reproducing the symptoms the paitent is complaining of. ) - Neuro Neuro: Alert and oriented X 3, dispatcher radio 2-12 intact, No motor deficit, No sensory deficit, Normal speech Eye Opening: Spontaneous Motor: Obeys Commands Verbal: Oriented GCS Score: 15 - Psych Psych: Normal mood, Normal affect Results - Vitals Vitals: Vital Signs - 24 hr 04/14/19 07:32 Temperature 36.1 C L Heart Rate 74 Respiratory 16 Rate Blood Pressure 123/87 H O2 Saturation 98 Oxygen O2 Source Room air - Rads (name of study) hips and pelvis Radiology: Prelim report reviewed (Impression: 1. No significant degenerative changes in the left or right hip joints. 2. Likely chronic small right superior lateral acetabular rim fracture), Discussed with rads (recommends SI joint films to further characterize), EMP read indepedently, See rad report sacroilliac Radiology: Prelim report reviewed (Impression: Normal sacroiliac joint radiography.) PD MEDICAL DECISION MAKING - ED course Complexity details: reviewed old records, reviewed results, re-evaluated patient, considered differential, d/w patient, d/w family ED course: 78-year-old male with a history of multiple myeloma now being treated for myelodysplastic syndrome with the vasa has developed some pain in his left sacroiliac area over the past 3 weeks. He has some tenderness specifically to the area and x-ray examination does not demonstrate any obvious area of bony sclerosis. There is no apparent involvement of the hip joint. On further history the patient indicates he may have overdone it a bit in the [facility] and his indicates that he is quite active rarely is he relaxing. The patient appears to be in good spirits and review of his blood work indicates an improvement. He is treated here in the emergency department with an IM injection of Toradol which actually hurts his arm quite a bit but helps with his pain. I discussed with the patient standard treatment for a lumbar strain and we will provide this for him here in the emergency department. He is given a dose of dexamethasone 10 mg orally we will place him on some pain medication a muscle relaxant. He does have a spinal stimulator in place and this pain is not addressed by the device. Departure - Departure Disposition: 01 Home, Self Care Clinical Impression: Lumbar strain Qualifiers: Encounter type: initial encounter Qualified Code(s): S39.012A - Strain of muscle, fascia and tendon of lower back, initial encounter Condition: Stable Instructions: ED Spasm Back No Trauma, ED Sprain Strain Lumbar Follow-Up: Geronimo Bella MD [Primary Care Provider] - Prescriptions: Cyclobenzaprine [Flexeril] 10 mg PO TID PRN #20 tablet PRN Reason: Spasms Hydrocodone/Acetaminophen [Hydrocodon-Acetaminophen 5-325] 1 - 2 each PO Q6H PRN #14 tablet PRN Reason: pain
--- NOTE | 2019-04-14 08:44 | XRAY Report ---
Reason: hip pain multiple myeloma Procedure Date: 04/14/2019 Accession Number: [id number] / [id number] Procedure: XR - Hip w/Pelvis 2-3V LT CPT Code: FULL RESULT: EXAM: LEFT HIP RADIOGRAPHY EXAM DATE: 04/14/2019 08:06 AM. CLINICAL HISTORY: Hip pain multiple myeloma. COMPARISON: None. TECHNIQUE: 3 views. FINDINGS: Bones: There is an irregular linear lucency extending through the superior lateral aspect of the right acetabulum. Joints: Normal. No dislocation. The hip joint space is preserved. Soft Tissues: Normal. No soft tissue swelling. IMPRESSION: 1. No significant degenerative changes in the left or right hip joints. 2. Likely chronic small right superior lateral acetabular rim fracture. [facility] ADDENDUM: 04/14/19 08:49 On further review of the images with the ordering provider, a cortical irregularity may be present along the superior lateral aspect of the left sacral ala adjacent to the SI joint. While this may represent artifact, a subtle fracture cannot be entirely excluded. An SI joint radiograph may help to further visualize this region.
[2019-04-14] MEDS ORDERED: KETOROLAC 60 MG/2 ML VIAL IM STA (08:50)
[2019-04-14] MEDS ORDERED: CHERRY SYRUP 10 ML UDC PO ONE (09:57)
[2019-04-14] MEDS ORDERED: DEXAMETHASONE 10 MG/ML VIAL PO STA (09:57)
--- NOTE | 2019-04-14 10:00 | XRAY Report ---
Reason: pain at the top of the left SI joint Procedure Date: 04/14/2019 Accession Number: [id number] / [id number] Procedure: XR - SI Joints CPT Code: FULL RESULT: EXAM: SACROILIAC JOINT RADIOGRAPHY EXAM DATE: 04/14/2019 09:23 AM. CLINICAL HISTORY: Pain at the top of the left SI joint. COMPARISON: HIP W/PELVIS 2-3V LT 04/14/2019 7:40 AM. TECHNIQUE: 3 views. FINDINGS: Bones: DJD lumbosacral spine. DJD hips. No fracture or bone lesion. Joints: The sacroiliac joints are normal. Soft Tissues: Normal. IMPRESSION: Normal sacroiliac joint radiography. RADIA
[2019-04-14 10:13] VITALS: BP 141/88
== END 2019-04-14 10:13 | disposition home or self-care (01) ==
LOC: ED 07:22
DX: S39.012A Strain of muscle, fascia and tendon of lower back, initial encounter (principal); M25.552 Pain in left hip; X50.9XXA Other and unspecified overexertion or strenuous movements or postures, initial encounter; Y93.H2 Activity, gardening and landscaping; Y92.007 Garden or yard of unspecified non-institutional (private) residence as the place of occurrence of the external cause; D46.9 Myelodysplastic syndrome, unspecified; C90.00 Multiple myeloma not having achieved remission
CPT/HCPCS: 72202; 73502; 96372; 99283; 99284; A9270

== ENCOUNTER 2019-07-28 16:25 | Emergency (ER) | payer MEDICARE, OTHER ==
[2019-07-28] MEDS ORDERED: HYDROmorphone 1 MG/ML CARPUJECT IVP STA ×2 (17:44→19:42)
[2019-07-28] MEDS ORDERED: LIDOCAINE-MPF 2% 7 ML in SODIUM CHLORIDE 0.9% 50 ML IV STA (17:44)
--- NOTE | 2019-07-28 17:48 | ED Physician Documentation ---
History of Present Illness - Stated complaint Stated Complaint: R FOOT PX - Chief complaint Chief Complaint: Heent - History obtained from History obtained from: Patient - History of Present Illness Timing: Today (79-year-old gentleman with history of myelodysplastic syndrome status post stem cell transplant a few years ago also with chronic back pain. He has neuropathy from his underlying issue. Without specific changes in activity or trauma today around 1:30 PM developed a severe burning shocklike pain that goes across the top of the foot and the medial ankle. It is intermittent. He is never had this before.) Review of Systems Constitutional: denies: Fever, Chills Throat: denies: Dental pain / toothache, Sore throat Cardiac: denies: Chest pain / pressure, Palpitations Respiratory: denies: Dyspnea, Cough PD PAST MEDICAL HISTORY - Past Medical History Cardiovascular: Arrhythmia Respiratory: None Neuro: None Endocrine/Autoimmune: None GI: Ulcers : Benign prostate hypertrophy HEENT: None Psych: None Musculoskeletal: Osteoarthritis, Chronic back pain Derm: None - Past Surgical History Past Surgical History: Yes General: Appendectomy, Colonoscopy, EGD Ortho: Arthroscopic surgery, Spine surgery, Other HEENT: Cataracts - Present Medications Home Medications: Ambulatory Orders Medication Instructions Recorded Confirmed Acetaminophen [Pain Reliever] 650 mg PO Q4H PRN 11/24/12 07/25/19 Cholecalciferol (Vitamin D3) 5,000 unit PO DAILY 11/24/12 07/25/19 [Vitamin D3] Cyanocobalamin/Folic Acid [Vitamin 1 each PO DAILY 11/24/12 07/25/19 M59-Uhnyv Acid Tablet] Glucosamine Sulfate Dipot Chlr 1,500 mg PO DAILY 11/24/12 07/25/19 [Glucosamine] Potassium Chloride [K-Dur] 20 meq PO DAILYWM 11/26/15 07/25/19 Multivit,Iron,Mins/Folic Acid 1 tab PO DAILY 03/17/16 07/25/19 [[facility] Tab] Finasteride 5 mg PO DAILY 09/02/18 07/25/19 Gabapentin 1,800 mg PO QPM 09/02/18 07/25/19 Tamsulosin [Flomax] 0.4 mg PO BID 09/02/18 07/25/19 Ondansetron Odt [Zofran Odt] 8 mg ORAL Q8HR PRN 09/20/18 07/25/19 Acyclovir 800 tab PO BID 30 Days #60 tablet 09/27/18 07/25/19 Fluconazole 400 mg PO DAILY 30 Days #30 tablet 09/27/18 07/25/19 Cyclobenzaprine [Flexeril] 10 mg PO TID PRN #20 tablet 04/14/19 07/25/19 Hydrocodone/Acetaminophen 1 - 2 each PO Q6H PRN #14 tablet 04/14/19 07/25/19 [Hydrocodon-Acetaminophen 5-325] Sulfamethoxazole/Trimethoprim 1 tab PO DAILY 05/30/19 07/25/19 [Bactrim 400-80 mg Tablet] cephALEXin [Keflex] 500 mg PO BID 05/30/19 07/25/19 Amitriptyline HCl 25 mg PO QPM #30 tablet 07/28/19 Gabapentin 200 mg PO BID #120 capsule 07/28/19 - Allergies Allergies/Adverse Reactions: Allergies Allergy/AdvReac Type Severity Reaction Status Date / Time quinine Allergy Unknown Rash Verified 07/28/19 16:32 - Social History Does the pt smoke?: No Smoking Status: Never smoker Does the pt drink ETOH?: No Does the pt have substance abuse?: No - Immunizations Immunizations are current?: Yes - POLST Patient has POLST: Yes POLST Status: Full Code PD ED PE NORMAL - Vitals Vital signs reviewed: Yes - General General: Alert and oriented X 3, No acute distress (He appears generally comfortable but every few minutes he will jump in pain) - Cardiac Cardiac: RRR, No murmur - Respiratory Respiratory: No respiratory distress, Clear bilaterally - Abdomen Abdomen: Soft, Non tender - Derm Derm: Normal color, Warm and dry - Extremities Extremities: Other (There is no visible deformity of the right foot or ankle although he does have flat feet. He has no pain with passive range of motion of the ankle, no warmth or redness. He has severe hyperesthesia of the skin across the top of the foot medially and the medial ankle. There is no calf tenderness or calf swelling.) - Neuro Neuro: Alert and oriented X 3, Normal speech Results - Vitals Vitals: Vital Signs - 24 hr 07/28/19 07/28/19 07/28/19 16:32 18:40 19:39 Temperature 36.5 C Heart Rate 70 58 L Respiratory 16 18 17 Rate Blood Pressure 119/87 H O2 Saturation 98 98 07/28/19 20:07 Temperature Heart Rate 56 L Respiratory 17 Rate Blood Pressure 150/77 H O2 Saturation 100 Oxygen O2 Source Room air - Labs Labs: Laboratory Tests 07/28/19 07/28/19 18:20 18:20 WBC 3.2 L RBC 3.31 L Hgb 11.8 L Hct 34.8 L MCV 105.1 H MCH 35.6 H MCHC 33.9 RDW 15.9 H Plt Count 67 L MPV 9.4 Neut # (Auto) 1.8 Lymph # (Auto) 0.8 L [place] # (Auto) 0.5 Eos # (Auto) 0.1 Baso # (Auto) 0.0 Absolute Nucleated RBC 0.00 Nucleated RBC % 0.0 Sodium 137 Potassium 4.0 Chloride 101 Carbon Dioxide 27 Anion Gap 9.0 BUN 18 Creatinine 1.0 Estimated GFR (MDRD) 72 L Glucose 101 H Calcium 9.2 Total Bilirubin 0.6 AST 35 ALT 55 Alkaline Phosphatase 50 Total Protein 6.8 Albumin 4.5 Globulin 2.3 Albumin/Globulin Ratio 2.0 Lipase 26 PD MEDICAL DECISION MAKING - ED course ED course: 79-year-old gentleman presents with an acute severe neuropathic type pain of the top of the foot. May be related to previous cancer treatments. Case discussed by phone with Dr. Zaidi, Dr. Knight's partner who had no specific recommendations other than increasing the gabapentin and discussing with Dr. Knight before next infusion. Departure - Departure Disposition: 01 Home, Self Care Clinical Impression: Neuropathic pain of ankle Qualifiers: Laterality: right Qualified Code(s): M79.2 - Neuralgia and neuritis, unspecified Condition: Good Record reviewed to determine appropriate education?: Yes Instructions: ED Acute Pain [facility] Prescriptions: Amitriptyline HCl 25 mg PO QPM #30 tablet Gabapentin 200 mg PO BID #120 capsule Comments: Return anytime for new or worse symptoms. Talk with Dr Knight about this before you next vidaza infusion.
[2019-07-28 18:35] LABS: BASOPHILS % (AUTO) 0.6 %; EOSINOPHILS # (AUTO) 0.1 10^3/uL (0.0-0.7); EOSINOPHILS % (AUTO) 2.5 %; HGB - HEMOGLOBIN 11.8 g/dL (14.0-18.0); LYMPHOCYTES # (AUTO) 0.8 10^3/uL (1.5-3.5); LYMPHOCYTES % (AUTO) 24.4 %; MEAN CORPUSCULAR HEMOGLOBIN 35.6 pg (27.0-31.0); MEAN CORPUSCULAR HGB CONC 33.9 g/dL (32.0-36.0); MEAN CORPUSCULAR VOLUME 105.1 fL (80.0-94.0); MEAN PLATELET VOLUME 9.4 fL (7.4-11.4); MONOCYTES # (AUTO) 0.5 10^3/uL (0.0-1.0); MONOCYTES % (AUTO) 16.9 %; NEUTROPHILS # (AUTO) 1.8 10^3/uL (1.5-6.6); PLT - PLATELET COUNT 67 10^3/uL (130-450); RED BLOOD COUNT 3.31 10^6/uL (4.70-6.10); RED CELL DISTRIBUTION WIDTH 15.9 % (12.0-15.0); WHITE BLOOD COUNT 3.2 x10^3/uL (4.8-10.8)
[2019-07-28 18:59] LABS: ALBUMIN 4.5 g/dL (3.2-5.5); BILIRUBIN,TOTAL 0.6 mg/dL (0.2-1.0); CALCIUM 9.2 mg/dL (8.5-10.3); TOTAL PROTEIN 6.8 g/dL (6.7-8.2)
--- NOTE | 2019-07-28 19:03 | XRAY Report ---
Reason: foot pain Procedure Date: 07/28/2019 Accession Number: [id number] / [id number] Procedure: XR - Foot 3 View RT CPT Code: Final Report FULL RESULT: EXAM: RIGHT FOOT RADIOGRAPHY EXAM DATE: 07/28/2019 06:29 PM. CLINICAL HISTORY: Foot pain. COMPARISON: None. TECHNIQUE: 3 views. FINDINGS: Bones: No displaced fracture seen. No evidence of osteomyelitis by plain film. Joints: No acute malalignment. Moderate midfoot degenerative changes. Soft Tissues: Peripheral vascular disease. No soft tissue swelling. IMPRESSION: Moderate midfoot degenerative changes without acute abnormality seen. [facility]
[2019-07-28] MEDS ORDERED: GABAPENTIN 100 MG CAPSULE PO STA ×2 (19:42→19:52)
[2019-07-28 20:07] VITALS: BP 150/77
== END 2019-07-28 21:12 | disposition home or self-care (01) ==
LOC: ED 16:25
DX: M79.2 Neuralgia and neuritis, unspecified (principal)
CPT/HCPCS: 36415; 73630; 80053; 83690; 85025; 96365; 96375; 96376; 99284; A9270; J1170; J7040

== ENCOUNTER 2019-08-15 12:05 | Emergency (ER) | payer MEDICARE, OTHER ==
[2019-08-15] MEDS ORDERED: KETAMINE 500 MG/10 ML VIAL IM STA (13:06)
--- NOTE | 2019-08-15 13:11 | ED Physician Documentation ---
PD HPI BACK PAIN - Stated complaint Stated Complaint: JOINT PX - Chief complaint Chief Complaint: Back Pain - History obtained from History obtained from: Patient, Family - History of Present Illness Timing - onset: Other (This is a 79-year-old gentleman with myelodysplastic syndrome and history of multiple myeloma status post multiple rounds of chemotherapy. He has worsening pain over the last 2 to 3 weeks near the right scapula, posterior ribs, spine, and both hips and pelvis posteriorly. His pain management and oncologist referred him to the emergency department for CTs. His pain is uncontrolled. They prescribed a lidocaine patch which was unavailable because of an insurance issue.) Review of Systems Constitutional: denies: Fever, Chills Nose: reports: Reviewed and negative Cardiac: reports: Reviewed and negative Respiratory: reports: Reviewed and negative PD PAST MEDICAL HISTORY - Past Medical History Cardiovascular: Arrhythmia Respiratory: None Neuro: None Endocrine/Autoimmune: None GI: Ulcers : Benign prostate hypertrophy HEENT: None Psych: None Musculoskeletal: Osteoarthritis, Chronic back pain Derm: None - Past Surgical History Past Surgical History: Yes General: Appendectomy, Colonoscopy, EGD Ortho: Arthroscopic surgery, Spine surgery, Other HEENT: Cataracts - Present Medications Home Medications: Ambulatory Orders Medication Instructions Recorded Confirmed Acetaminophen [Pain Reliever] 650 mg PO Q4H PRN 11/24/12 08/08/19 Cholecalciferol (Vitamin D3) 5,000 unit PO DAILY 11/24/12 08/08/19 [Vitamin D3] Cyanocobalamin/Folic Acid [Vitamin 1 each PO DAILY 11/24/12 08/08/19 K35-Fxduz Acid Tablet] Glucosamine Sulfate Dipot Chlr 1,500 mg PO DAILY 11/24/12 08/08/19 [Glucosamine] Potassium Chloride [K-Dur] 20 meq PO DAILYWM 11/26/15 08/08/19 Multivit,Iron,Mins/Folic Acid 1 tab PO DAILY 03/17/16 08/08/19 [Centrum Specialist Heart Tab] Finasteride 5 mg PO DAILY 09/02/18 08/08/19 Gabapentin 1,800 mg PO QPM 09/02/18 08/08/19 Tamsulosin [Flomax] 0.4 mg PO BID 09/02/18 08/08/19 Ondansetron Odt [Zofran Odt] 8 mg ORAL Q8HR PRN 09/20/18 08/08/19 Acyclovir 800 tab PO BID 30 Days #60 tablet 09/27/18 08/08/19 Fluconazole 400 mg PO DAILY 30 Days #30 tablet 09/27/18 08/08/19 Cyclobenzaprine [Flexeril] 10 mg PO TID PRN #20 tablet 04/14/19 08/08/19 Hydrocodone/Acetaminophen 1 - 2 each PO Q6H PRN #14 tablet 04/14/19 08/08/19 [Hydrocodon-Acetaminophen 5-325] Sulfamethoxazole/Trimethoprim 1 tab PO DAILY 05/30/19 08/08/19 [Bactrim 400-80 mg Tablet] cephALEXin [Keflex] 500 mg PO BID 05/30/19 08/08/19 Amitriptyline HCl 25 mg PO QPM #30 tablet 07/28/19 08/08/19 Gabapentin 200 mg PO BID #120 capsule 07/28/19 08/08/19 - Allergies Allergies/Adverse Reactions: Allergies Allergy/AdvReac Type Severity Reaction Status Date / Time quinine Allergy Unknown Rash Verified 08/08/19 11:13 - Social History Does the pt smoke?: No Smoking Status: Never smoker Does the pt drink ETOH?: No Does the pt have substance abuse?: No - Immunizations Immunizations are current?: Yes - POLST Patient has POLST: Yes POLST Status: Full Code PD ED PE NORMAL - Vitals Vital signs reviewed: Yes - General General: Alert and oriented X 3, No acute distress - Neck Neck: Supple, no meningeal sign, No bony TTP - Back Back: Other (Multiple areas of midline spinal tenderness in the mid, lower thoracic spine, and lumbar spine. Multiple areas of rib tenderness posteriorly especially on the right around T8. The shoulders and scapular themselves are nontender. He is quite tender to the posterior pelvis on the right. He walks normally.) - Neuro Neuro: Alert and oriented X 3, Normal speech Results - Vitals Vitals: Vital Signs - 24 hr 08/15/19 12:13 Heart Rate 77 Respiratory 14 Rate Blood Pressure 139/76 H O2 Saturation 98 Oxygen O2 Source Room air - Rads (name of study) CT CHest W/O Radiology: EMP read contemporaneously (Small area of atelectasis or infiltrate in the lingula, otherwise unremarkable) CT lumbar spine Radiology: EMP read contemporaneously (Mild spinal canal stenosis and moderate right foraminal stenosis at L2-L3 secondary to a disc osteophyte complex and right greater than left facet arthrosis. Mild to moderate stenosis and mild to moderate right foraminal stenosis at L3-L4. Moderate right greater than left facet arthrosis at L4-L5 without stenosis. Moderate aortic atherosclerosis with focal ectasia near the bifurcation measuring up to 3.1 cm in diameter. No fracture or bone lesion identified.) CT pelvic bones Radiology: EMP read contemporaneously (Mild bilateral hip osteoarthritis and degenerative changes in the sacroiliac joints bilaterally without destructive or bony lytic lesions.) PD MEDICAL DECISION MAKING - ED course ED course: 79-year-old gentleman sent by his pain management doctor and PCP for CTs to rule out bony involvement of his cancer, this was done and negative. He has always had difficult to control pain, he does not tolerate opiates. He is on very high-dose gabapentin. We trialed some IM ketamine. After that he appeared quite comfortable Departure - Departure Disposition: 01 Home, Self Care Clinical Impression: Bilateral hip pain, Myelodysplastic syndrome Back pain Qualifiers: Back pain location: low back pain Chronicity: acute Back pain laterality: midline Sciatica presence: without sciatica Qualified Code(s): M54.5 - Low back pain Acute thoracic back pain Qualifiers: Back pain laterality: bilateral Qualified Code(s): M54.6 - Pain in thoracic spine Multiple myeloma Qualifiers: Multiple myeloma remission status: not in remission Qualified Code(s): C90.00 - Multiple myeloma not having achieved remission Condition: Good Record reviewed to determine appropriate education?: Yes Instructions: ED Chronic Pain Management Comments: Your CT scans were without evidence of bony involvement of either of your cancers. Return for new or worsening symptoms and follow-up with your pain management physician.
--- NOTE | 2019-08-15 14:13 | CT Report ---
Reason: MDS/muliple myeloma, worsening back/hip pain Procedure Date: 08/15/2019 Accession Number: [id number] / [id number] Procedure: CT - LUMBAR SPINE WO CPT Code: Final Report FULL RESULT: EXAM: CT LUMBAR SPINE WITHOUT CONTRAST EXAM DATE: 08/15/2019 01:44 PM. CLINICAL HISTORY: MDS/muliple myeloma, worsening back/hip pain. COMPARISONS: PELVIS W/O 08/15/2019 1:30 PM. TECHNIQUE: Thin-section axial images were acquired of the lumbar spine from T12 to S1 without contrast. Post-processing: Coronal and sagittal reformats. Other: None. In accordance with CT protocol optimization, one or more of the following dose reduction techniques were utilized for this exam: automated exposure control, adjustment of mA and/or KV based on patient size, or use of iterative reconstructive technique. FINDINGS: Alignment: Mild left convex scoliosis. No subluxation. Bones: Five [id number]-hky-oztmonr lumbar vertebral bodies are present. The bones are likely demineralized. No acute fracture identified. No aggressive or lytic osseous lesion identified. Disk Levels/Facets: Mild spinal canal stenosis and moderate right foraminal stenosis at L2-L3 secondary to a mild disk osteophyte complex and right greater than left facet arthrosis. Mild to moderate spinal canal stenosis and mild to moderate right foraminal stenosis at L3-L4 secondary to a small disk osteophyte complex and right greater than left facet arthrosis. Moderate right greater than left facet arthrosis and mild disk degeneration at L4-L5 without spinal canal stenosis. Moderate disk height loss and bilateral facet arthrosis at L5-S1 without spinal canal stenosis. Moderate left and mild right foraminal stenosis at L5-S1. Other: Spinal stimulator leads enter the canal at T11-T12. Moderate aortic atherosclerosis with focal ectasia near the bifurcation measuring up to 3.1 cm in diameter. IMPRESSION: No fracture or bone lesion identified. RADIA
--- NOTE | 2019-08-15 14:15 | CT Report ---
Reason: MDS/muliple myeloma, worsening back/hip pain Procedure Date: 08/15/2019 Accession Number: [id number] / [id number] Procedure: CT - CHEST WO CPT Code: Final Report FULL RESULT: EXAM: CT CHEST EXAM DATE: 08/15/2019 01:44 PM. CLINICAL HISTORY: MDS/muliple myeloma, worsening back/hip/shoulder pain. COMPARISONS: None. TECHNIQUE: Routine helical CT imaging was performed through the chest. IV contrast: None. Reconstructions: Coronal and sagittal. In accordance with CT protocol optimization, one or more of the following dose reduction techniques were utilized for this exam: automated exposure control, adjustment of mA and/or KV based on patient size, or use of iterative reconstructive technique. FINDINGS: Lungs/Pleura: Localized atelectasis or infiltrate in the lingula. Otherwise clear. Minimal bronchiectasis. No effusion or pneumothorax. Mediastinum: Normal heart size. No pericardial effusion. Marked coronary artery calcification. No lymphadenopathy. Bones: Degenerative changes. Visualized Abdomen: Unremarkable. Other: Neurostimulator with lead entering spinal canal at T11-T12, tip at T7-T8. Right Port-A-Cath. IMPRESSION: Small area of atelectasis or infiltrate in lingula. Otherwise unremarkable. RADIA
--- NOTE | 2019-08-15 14:24 | CT Report ---
Reason: MDS/muliple myeloma, worsening back/hip pain Procedure Date: 08/15/2019 Accession Number: [id number] / [id number] Procedure: CT - PELVIS WO CPT Code: Final Report FULL RESULT: EXAM: CT BONY PELVIS WITHOUT CONTRAST EXAM DATE: 08/15/2019 01:44 PM. CLINICAL HISTORY: MDS/muliple myeloma, worsening back/hip pain. COMPARISON: None. TECHNIQUE: Thin-section axial images were acquired of the pelvis without contrast. Post-processing: Coronal and sagittal reformats. Other: None. In accordance with CT protocol optimization, one or more of the following dose reduction techniques were utilized for this exam: automated exposure control, adjustment of mA and/or KV based on patient size, or use of iterative reconstructive technique. FINDINGS: Bones and articular surfaces: Lower lumbar degenerative disk and facet arthropathy. Mild symmetric degenerative change at the bilateral sacroiliac joints with small osteophytes and slight degree of subcortical sclerosis. No erosive change. No ankylosis. 0.5 cm sclerotic focus at the right superior pubic ramus could represent bone island or small healing bone lesion. No discrete lytic bone lesions are identified. Mild bilateral hip joint space narrowing with small marginal osteophytes, mild subchondral sclerosis and tiny subchondral cyst formation. Soft tissues: Visualized musculotendinous structures appear grossly intact. No bladder stones. No significant pelvic free fluid. Small bilateral fat-containing inguinal hernias. IMPRESSION: 1. Mild bilateral hip osteoarthritis. 2. Mild degenerative change in the bilateral sacroiliac joints. 3. Lower lumbar degenerative disk and facet arthropathy. 4. No destructive or lytic bone lesions. No fractures identified. RADIA
[2019-08-15 15:22] VITALS: BP 128/86
== END 2019-08-15 15:21 | disposition home or self-care (01) ==
LOC: ED 12:05
DX: D46.9 Myelodysplastic syndrome, unspecified (principal); C90.00 Multiple myeloma not having achieved remission; M16.0 Bilateral primary osteoarthritis of hip; M51.36 Other intervertebral disc degeneration, lumbar region; M48.061 Spinal stenosis, lumbar region without neurogenic claudication; M54.6 Pain in thoracic spine
CPT/HCPCS: 71250; 72131; 72192; 96372; 99283; 99284

== ENCOUNTER 2019-10-10 15:52 | Outpatient (CLI) | payer MEDICARE, OTHER | END 2019-10-10 15:53 | disposition home or self-care (01) | LOC: COV 15:52 | PROVIDERS: ATTEND Family Medicine | DX: R05 Cough (principal); R50.9 Fever, unspecified | CPT/HCPCS: 81599; U0002 ==

== ENCOUNTER 2019-12-20 09:50 | Outpatient (CLI) | payer MEDICARE, OTHER | END 2019-12-20 23:59 | disposition home or self-care (01) | LOC: COV 09:50 | PROVIDERS: ATTEND Family Medicine | DX: M79.10 Myalgia, unspecified site (principal); R53.83 Other fatigue; R68.83 Chills (without fever); J02.9 Acute pharyngitis, unspecified; R19.7 Diarrhea, unspecified; R43.8 Other disturbances of smell and taste; Z20.828 Contact with and (suspected) exposure to other viral communicable diseases | CPT/HCPCS: 81599 ==

== ENCOUNTER 2020-01-25 12:32 | Outpatient (CLI) | payer MEDICARE, OTHER ==
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
== END 2020-01-25 12:33 | disposition home or self-care (01) ==
LOC: PC 12:32
PROVIDERS: ATTEND Nurse Practitioner Adult Health
DX: Z51.5 Encounter for palliative care (principal); D46.A Refractory cytopenia with multilineage dysplasia; R50.9 Fever, unspecified; R05 Cough; R35.0 Frequency of micturition; R39.15 Urgency of urination; R53.1 Weakness; G89.29 Other chronic pain; R53.83 Other fatigue; R06.09 Other forms of dyspnea; Z79.899 Other long term (current) drug therapy; Z79.2 Long term (current) use of antibiotics; Z91.81 History of falling; Z87.828 Personal history of other (healed) physical injury and trauma
CPT/HCPCS: 99205

== ENCOUNTER 2020-01-25 14:21 | Outpatient (CLI) | payer MEDICARE, OTHER ==
--- NOTE | 2020-01-25 16:48 | XRAY Report ---
PROCEDURE: Chest 2 View X-Ray INDICATIONS: FEVER,WEAKNESS INCREASED RESP RATE TECHNIQUE: 2 view(s) of the chest. COMPARISON: 2 view chest x-ray 10/25/2018.. FINDINGS: Surgical changes and devices: Right chest wall Port-A-Cath. Neurostimulator leads identified in the c ervical and thoracic spine. Lungs and pleura: No pleural effusions or pneumothorax. Lungs are clear. Lungs mildly hyperinflated suggesting COPD. Mediastinum: Mediastinal contours are normal. Heart size is normal. Bones and chest wall: No suspicious bony abnormalities. Soft tissues appear unremarkable. IMPRESSION: No acute cardiopulmonary disease process. Reviewed by: Bailey Fioer MD, PhD on 01/25/2020 4:47 PM PDT Approved by: Bailey Fiore MD, PhD on 01/25/2020 4:47 PM PDT Station ID: [id number]
== END 2020-01-25 14:22 | disposition home or self-care (01) ==
LOC: DI 14:21
PROVIDERS: ATTEND Nurse Practitioner Adult Health
DX: R06.02 Shortness of breath (principal); R50.9 Fever, unspecified; R53.1 Weakness
CPT/HCPCS: 71046

== ENCOUNTER 2020-03-06 12:38 | Inpatient (IN) | payer MEDICARE, OTHER ==
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
[2020-03-06] MEDS ORDERED: LACTATED RINGERS 1,000 ML IV STA ×2 (14:32→16:30)
[2020-03-06] MEDS ORDERED: IOVERSOL 320 100 ML VIAL IVP ONE ×2 (14:47→17:19)
[2020-03-06 15:09] LABS: BASOPHILS % (AUTO) 0.4 %; EOSINOPHILS % (AUTO) 0.3 %; HGB - HEMOGLOBIN 11.3 g/dL (14.0-18.0); LYMPHOCYTES # (AUTO) 1.7 10^3/uL (1.5-3.5); LYMPHOCYTES % (AUTO) 23.8 %; MEAN CORPUSCULAR HEMOGLOBIN 33.1 pg (27.0-31.0); MEAN CORPUSCULAR HGB CONC 34.5 g/dL (32.0-36.0); MEAN CORPUSCULAR VOLUME 96.2 fL (80.0-94.0); MONOCYTES % (AUTO) 13.9 %; NEUTROPHILS # (AUTO) 4.3 10^3/uL (1.5-6.6); NEUTROPHILS % (AUTO) 60.6 %; RED BLOOD COUNT 3.41 10^6/uL (4.70-6.10); RED CELL DISTRIBUTION WIDTH 16.9 % (12.0-15.0); WHITE BLOOD COUNT 7.1 x10^3/uL (4.8-10.8)
[2020-03-06 15:23] LABS: ALBUMIN 4.2 g/dL (3.2-5.5); ALBUMIN/GLOBULIN RATIO 1.4 (1.0-2.2); BILIRUBIN,TOTAL 1.2 mg/dL (0.2-1.0); CALCIUM 9.2 mg/dL (8.5-10.3); CREATININE 1.1 mg/dL (0.6-1.2); MAGNESIUM 2.1 mg/dL (1.7-2.8); TOTAL PROTEIN 7.3 g/dL (6.7-8.2)
[2020-03-06 15:42] LABS: PLT - PLATELET COUNT 27 10^3/uL (130-450)
[2020-03-06 15:43] LABS: PLATELET ESTIMATE, MANUAL DECREASED (<130,000) (NORMAL); PLATELET MORPHOLOGY NORMAL APPEARANCE (NORMAL); RBC MORPHOLOGY (MULTIPLE) NORMAL APPEARANCE (NORMAL)
--- NOTE | 2020-03-06 16:38 | CT Report ---
PROCEDURE: HEAD WO INDICATIONS: fall last night; headache TECHNIQUE: Noncontrast 4.5 mm thick angled axial sections acquired from the foramen magnum to the vertex. For r adiation dose reduction, the following was used: automated exposure control, adjustment of mA and/or kV according to patient size. COMPARISON: None. FINDINGS: Image quality: There is mild motion artifact. CSF spaces: There is moderate cerebral volume loss with prominence of the ventricles and sulci. Basa l cisterns are patent. No extra-axial fluid collections. Brain: No intracranial hemorrhage, mass, or mass effect. There are subcortical and periventricular w duy matter hypodensities compatible with mild to moderate chronic white matter small vessel ischemic changes. The great-white matter junction appears preserved. Skull and face: Calvarium and visualized facial bones are intact, without suspicious lesions. Sinuses: Visualized sinuses and mastoids are clear. IMPRESSION: 1. No acute intracranial abnormality. 2. Moderate cerebral volume loss and mild to moderate chronic white matter small vessel ischemic alexandra ges. Reviewed by: Fadi Massey MD on 03/06/2020 4:36 PM PDT Approved by: Fadi Massey MD on 03/06/2020 4:36 PM PDT Station ID: [id number]
[2020-03-06 16:53] LABS: BILIRUBIN,URINE NEGATIVE (NEGATIVE); GLUCOSE, URINE (UA) NEGATIVE (NEGATIVE); KETONES,URINE (UA) NEGATIVE (NEGATIVE); LEUKOCYTE ESTERASE, URINE NEGATIVE (NEGATIVE); NITRITE,URINE NEGATIVE (NEGATIVE); OCCULT BLOOD,URINE NEGATIVE (NEGATIVE); PROTEIN,URINE NEGATIVE (NEGATIVE); UROBILINOGEN,URINE 0.2 (NORMAL) E.U./dL (NORMAL)
[2020-03-06 16:58] LABS: CLARITY,URINE CLEAR (CLEAR)
--- NOTE | 2020-03-06 17:00 | CT Report ---
PROCEDURE: CHEST W INDICATIONS: fever and malaise for 2 weeks CONTRAST: IV CONTRAST: Optiray 320 ml: 100 PO CONTRAST: *NO PO CONTRAST TECHNIQUE: After the administration of intravenous contrast, 5 mm thick sections acquired from the pulmonary api ze to the posterior costophrenic angles. 7 mm thick coronal MIP reformats were acquired. For radia tion dose reduction, the following was used: automated exposure control, adjustment of mA and/or kV according to patient size. COMPARISON: Chest radiographs from earlier same day and 01/25/2020. FINDINGS: Image quality: Excellent. Lungs and pleura: No acute air space opacities. 7 mm left lung base pulmonary nodule seen on axial i mage 34, series 9. There is a 4 mm nodule in the right middle lobe seen on image 34, series 9. A few scattered right lower lobe pulmonary nodules measuring between 4 and 5 mm are visualized. No pleural effusions or pneumothorax. Central and peripheral airways are patent and normal in caliber. Mediastinum: Heart size is normal. Coronary arterial calcifications are present. No pericardial effu denys. No mediastinal or hilar adenopathy by size criteria. Thoracic aorta and central pulmonary art eries are normal in size. Esophagus is normal in caliber. No hiatal hernia. Bones and chest wall: No suspicious bony lesions. No acute vertebral body compression fractures. Mu ltilevel spondylitic changes of the imaged spine. No axillary or supraclavicular adenopathy by size c riteria. Thyroid gland is unremarkable. Right-sided tunneled port device is present with the tip te rminating near the cavoatrial junction. Thoracic cord spinal stimulator device is noted and appears w ithin the epidural space. No abnormal epidural fluid collections adjacent to the leads. No abnormal f luid collections along the visualized leads outside of the spinal canal. Abdomen: Visualized upper abdominal solid organs appear normal. Upper abdominal bowel loops are nor mal in caliber. IMPRESSION: 1. Chest without acute cardiopulmonary abnormalities. 2. Multiple subcentimeter pulmonary nodules noted in the bilateral lower lobes measuring up to 5 mm o n the right and 7 mm on the left. Recommend follow-up CT in 3-6 months to document stability. 3. Atherosclerosis. Reviewed by: Saran Salazar MD on 03/06/2020 4:59 PM PDT Approved by: Saran Salazar MD on 03/06/2020 4:59 PM PDT Station ID: [id number]
--- NOTE | 2020-03-06 17:20 | CT Report ---
PROCEDURE: Abdomen/Pelvis W INDICATIONS: abd cramps and feverish for 2 weeks CONTRAST: IV CONTRAST: Optiray 320 ml: 100 PO CONTRAST: *NO PO CONTRAST TECHNIQUE: After the administration of oral and intravenous contrast, 5 mm thick sections acquired from the diap hragms to the symphysis. 5 mm thick coronal and sagittal reformats were acquired. For radiation dos e reduction, the following was used: automated exposure control, adjustment of mA and/or kV accordin g to patient size. COMPARISON: CT chest from earlier same day. FINDINGS: Image quality: Excellent. ABDOMEN: Lung bases: There are several subcentimeter bilateral lung base nodules better described on dedicated CT of the chest from earlier same date. Please see separate report for details. Heart size is normal . Atherosclerosis of the coronary arteries. Solid organs: Liver and spleen are normal in size and enhancement. 5 mm, subtle left hepatic lobe hy podensity is too small to characterize. This may represent a cyst versus hemangioma. This is seen on axial image 57, series 3. Gallbladder is decompressed but otherwise unremarkable. Biliary system is non dilated. Pancreas enhances normally. No adrenal nodules. Kidneys demonstrate normal size and e nhancement, without hydronephrosis. There are several subcentimeter renal hypodensities bilaterally which are too small to accurately characterize. These likely represent cysts. Peritoneum and bowel: Bowel loops demonstrate normal wall thickness and caliber. No free fluid or a ir. Nodes and vessels: No retroperitoneal or mesenteric adenopathy by size criteria. Moderate atheroscl erosis of the abdominal aorta and mesenteric vessels. There is mild infrarenal abdominal aortic aneur ysmal dilatation just prior to the bifurcation measuring approximately 3.2 x 2.5 cm in transverse dim ension. Small intramural hematoma noted. No periaortic inflammatory stranding. Miscellaneous: No ventral hernias. PELVIS: Genitourinary: Bladder wall thickness is normal. Miscellaneous: No inguinal hernias or adenopathy. Thoracic spinal cord stimulator device is noted i n the right posterior subcutaneous soft tissues superior to the right iliac crest. Bones: No suspicious bony lesions. No acute vertebral body compression fractures. Multilevel spond ylitic changes of the imaged spine. IMPRESSION: 1. CT abdomen and pelvis without acute abnormalities. 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 2. Small infrarenal abdominal aortic aneurysm noted just prior to the bifurcation measuring 3.2 x 2.5 cm in transverse dimension. Recommend continued clinical and imaging surveillance. 3. Multiple subcentimeter lateral renal hypodensities which are too small to accurately characterize. These likely represent cysts. Recommend dedicated renal mass CT or MRI in 6-12 months to further bhavna racterize and document stability. 4. Atherosclerosis. 5. Multiple subcentimeter bibasilar pulmonary nodules measuring up to 7 mm which are better evaluated on dedicated CT of the chest from same day. Please see separate report for details. Recommend follow -up CT chest in 3-6 months to document stability. Reviewed by: Saran Salazar MD on 03/06/2020 5:19 PM PDT Approved by: Saran Salazar MD on 03/06/2020 5:19 PM PDT Station ID: [id number]
[2020-03-06] MEDS ORDERED: LORazepam 2 MG/ML VIAL IVP STA (17:26)
[2020-03-06] MEDS ORDERED: MORPHINE 2 MG/ML CARPUJECT IVP STA (17:26)
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
[2020-03-06] MEDS: SODIUM CHLORIDE 0.9% 1,000 ML IV SCH (20:38)
[2020-03-06] MEDS: ACETAMINOPHEN 325 MG TABLET PO PRN (20:39)
[2020-03-06] MEDS: SODIUM CHLORIDE FLUSH 0.9% 10 ML SYRINGE IVP PRN (20:42)
[2020-03-06] MEDS ORDERED: MORPHINE 2 MG/ML CARPUJECT IVP PRN (23:45)
[2020-03-06] MEDS ORDERED: oxyCODONE 5 MG TABLET PO PRN (23:46)
[2020-03-07] MEDS: SODIUM CHLORIDE FLUSH 0.9% 10 ML SYRINGE IVP SCH ×3 (01:14→17:40)
[2020-03-07] MEDS ORDERED: GABAPENTIN 300 MG CAPSULE PO STA (03:14)
[2020-03-07] MEDS: ACETAMINOPHEN 325 MG TABLET PO PRN ×4 (03:24→20:00)
[2020-03-07] MEDS: SODIUM CHLORIDE 0.9% 1,000 ML IV SCH ×2 (06:20→17:41)
[2020-03-07] MEDS: PANTOPRAZOLE 40 MG TABLET PO SCH (06:30)
[2020-03-07 06:52] LABS: BASOPHILS % (AUTO) 0.6 %; EOSINOPHILS % (AUTO) 0.5 %; HGB - HEMOGLOBIN 10.6 g/dL (14.0-18.0); LYMPHOCYTES # (AUTO) 1.4 10^3/uL (1.5-3.5); LYMPHOCYTES % (AUTO) 21.1 %; MEAN CORPUSCULAR HEMOGLOBIN 33.1 pg (27.0-31.0); MEAN CORPUSCULAR HGB CONC 34.1 g/dL (32.0-36.0); MEAN CORPUSCULAR VOLUME 97.2 fL (80.0-94.0); MONOCYTES # (AUTO) 1.2 10^3/uL (0.0-1.0); MONOCYTES % (AUTO) 18.2 %; NEUTROPHILS # (AUTO) 3.9 10^3/uL (1.5-6.6); RED CELL DISTRIBUTION WIDTH 17.4 % (12.0-15.0); WHITE BLOOD COUNT 6.6 x10^3/uL (4.8-10.8)
[2020-03-07 06:55] LABS: CALCIUM 8.7 mg/dL (8.5-10.3)
[2020-03-07 07:08] LABS: PLT - PLATELET COUNT 23 10^3/uL (130-450)
--- NOTE | 2020-03-07 11:14 | PHARMACY PROGRESS NOTE ---
- Best Possible Medication History Admit Date and Time: 03/06/201925 Processed by: Pharmacy Medication History completed: Yes Patient Interview: Completed Secondary Source(s): Pharmacy records (PATIENT INTERVIEWED BY CONSTRUCTION FOREMAN. INSURANCE AND PHARMACY RECORDS ARE ONLY SOURCE OF MEDICATION HISTORY. PATIENT UNABLE TO CONFIRM), Insurance records As the person ultimately responsible for medication therapy, providers are able to order a medication from an existing home medication list in [facility] via the "Reconcile Routine" prior to Confirmation of that medication by security support analyst. Such practice is discouraged except when the physician, in their clinical judgment, deems that a medical need exists for a medication without regard to previous use.
--- NOTE | 2020-03-07 15:04 | PROVIDER PROGRESS NOTE ---
Subjective - Prog Note Date Prog Note Date: 03/07/20 Prog Note Time: 19:31 (seen multiple times thru the day) - Subjective Subjective: Patient without specific complaints this morning very concerned that the fever source be identified, that he needs to eat , and that he is progressively weaker Current Medications - Current Medications Current Medications: Active Medications Generic Name Dose Route Start Last Admin Trade Name Gaudencioq PRN Reason Stop Dose Admin Acetaminophen 650 mg 03/06/20 19:26 03/07/20 09:27 Tylenol PO 650 mg Q4HR PRN Administration Pain 1 to 4 Sodium Chloride 1,000 mls @ 100 mls/hr 03/06/20 20:00 03/07/20 06:20 Normal Saline 0.9% IV 100 mls/hr .Q10H CRISTINE Administration Pantoprazole Sodium 40 mg 03/07/20 07:00 03/07/20 06:30 Protonix PO 40 mg QDAC CRISTINE Administration Sodium Chloride 10 ml 03/06/20 19:26 03/06/20 20:42 Normal Saline Flush 0.9% IVP 10 ml PRN PRN Administration NEEDED PER PROVIDER ORDERS Sodium Chloride 10 ml 03/07/20 01:00 03/07/20 07:59 Normal Saline Flush 0.9% IVP Not Given 0100,0900,1700 CRISTINE Finasteride 5 mg PO DAILY 09/02/18 Tamsulosin [Flomax] 0.4 mg PO BID 09/02/18 Ondansetron Odt [Zofran Odt] 8 mg ORAL Q8HR PRN 09/20/18 Gabapentin 1,800 mg PO DAILY PM 12/26/19 Amitriptyline [Elavil] 25 mg PO QPM 03/07/20 Fluconazole 200 mg PO BID 03/07/20 Gabapentin 100 mg PO BID 03/07/20 Lidocaine [Aspercreme Lidocaine] 1 patch TOP Q12H PRN 03/07/20 Sulfamethoxazole/Trimethoprim [Bactrim 400-80 mg Tablet] 1 tab PO DAILY 03/07/20 Objective - Vital Signs/Intake & Output Reviewed Vital Signs: Yes Vital Signs: Vital Signs x48h Temp Pulse Resp BP Pulse Ox 03/07/20 07:50 37.3 C 79 18 130/75 94 no further temp spikes today other than isolated temp 39 last night Intake & Output: Intake & Output 03/04/20 03/05/20 03/06/20 03/07/20 23:59 23:59 23:59 23:59 Intake Total 1999 1530 Output Total 50 800 Balance 1950 730 - Objective General Appearance: positive: No acute distress, Other (Older, thin alopecic m laura wearing glasses Patient somewhat tangential, joking and sarcastic when responding to questions, Per that is his baseline. Mid day (following PO oxycodone dose he was confused and impulsive) (improved as day went on)) Eyes Bilateral: positive: Normal inspection, EOMI, No scleral icterus, Other (no scleral hemorrhage) ENT: positive: Other (Dry mouth) Respiratory: positive: Chest non-tender, No respiratory distress, Breath sounds nml, Other (no cough Right chest infusaport sight without redness, tenderness , swelling) Cardiovascular: positive: Regular rate & rhythm, No murmur Abdomen: positive: No organomegaly, Nml bowel sounds, Other (witnessed on commode with loose bowels x 1) Back: negative: CVA tenderness (R), CVA tenderness (L) Skin: positive: Warm, Dry, Other (No petechiae Dry skin). negative: Diaphoresis Extremities: negative: Pedal edema Neurologic/Psychiatric: positive: Oriented x3 (as above, oriented x 3 this morning although somewhat odd affect that describes as "him" , he was confused, somewhat easily agitated, and impulsive after an oral oxycodone dose), Sensation nml - Lab Results Fish Bones: 03/08/20 06:00 03/08/20 06:00 Other Labs: Lab Results x24hrs 03/07/20 03/07/20 03/07/20 Range/Units 06:30 06:30 04:25 WBC 6.6 (4.8-10.8) x10^3/uL RBC 3.20 L (4.70-6.10) 10^6/uL Hgb 10.6 L (14.0-18.0) g/dL Hct 31.1 L (42.0-52.0) % MCV 97.2 H (80.0-94.0) fL MCH 33.1 H (27.0-31.0) pg MCHC 34.1 (32.0-36.0) g/dL RDW 17.4 H (12.0-15.0) % Plt Count 23 L* (130-450) 10^3/uL MPV Neut # (Auto) 3.9 (1.5-6.6) 10^3/uL Lymph # (Auto) 1.4 L (1.5-3.5) 10^3/uL [place] # (Auto) 1.2 H (0.0-1.0) 10^3/uL Eos # (Auto) 0.0 (0.0-0.7) 10^3/uL Baso # (Auto) 0.0 (0.0-0.1) 10^3/uL Absolute Nucleated RBC 0.02 x10^3/uL Nucleated RBC % 0.3 /100WBC Platelet Estimate (NORMAL) Platelet Morphology (NORMAL) RBC Morph Micro Appear (NORMAL) Sodium 132 L (135-145) mmol/L Potassium 3.6 (3.5-5.0) mmol/L Chloride 95 L (101-111) mmol/L Carbon Dioxide 26 (21-32) mmol/L Anion Gap 11.0 (6-13) BUN 12 (6-20) mg/dL Creatinine 1.0 (0.6-1.2) mg/dL Estimated GFR (MDRD) 72 L (>89) Glucose 136 H (70-100) mg/dL Lactic Acid (0.5-2.2) mmol/L Calcium 8.7 (8.5-10.3) mg/dL Magnesium (1.7-2.8) mg/dL Total Bilirubin (0.2-1.0) mg/dL AST (10-42) IU/L ALT (10-60) IU/L Alkaline Phosphatase (42-121) IU/L Total Protein (6.7-8.2) g/dL Albumin (3.2-5.5) g/dL Globulin (2.1-4.2) g/dL Albumin/Globulin Ratio (1.0-2.2) Lipase (22-51) U/L Urine Color Urine Clarity (CLEAR) Urine pH (5.0-7.5) PH Ur Specific [place] (1.002-1.030) Urine Protein (NEGATIVE) mg/dL Urine Glucose (UA) (NEGATIVE) mg/dL Urine Ketones (NEGATIVE) mg/dL Urine Occult Blood (NEGATIVE) Urine Nitrite (NEGATIVE) Urine Bilirubin (NEGATIVE) Urine Urobilinogen (NORMAL) E.U./dL Ur Leukocyte Esterase (NEGATIVE) Ur Microscopic Review Urine Culture Comments Stl C. diff Tox B Gene NEGATIVE (NEGATIVE) 03/06/20 03/06/20 03/06/20 Range/Units 16:45 15:00 15:00 WBC (4.8-10.8) x10^3/uL RBC (4.70-6.10) 10^6/uL Hgb (14.0-18.0) g/dL Hct (42.0-52.0) % MCV (80.0-94.0) fL MCH (27.0-31.0) pg MCHC (32.0-36.0) g/dL RDW (12.0-15.0) % Plt Count (130-450) 10^3/uL MPV Neut # (Auto) (1.5-6.6) 10^3/uL Lymph # (Auto) (1.5-3.5) 10^3/uL [place] # (Auto) (0.0-1.0) 10^3/uL Eos # (Auto) (0.0-0.7) 10^3/uL Baso # (Auto) (0.0-0.1) 10^3/uL Absolute Nucleated RBC x10^3/uL Nucleated RBC % /100WBC Platelet Estimate (NORMAL) Platelet Morphology (NORMAL) RBC Morph Micro Appear (NORMAL) Sodium 131 L (135-145) mmol/L Potassium 3.9 (3.5-5.0) mmol/L Chloride 97 L (101-111) mmol/L Carbon Dioxide 26 (21-32) mmol/L Anion Gap 8.0 (6-13) BUN 16 (6-20) mg/dL Creatinine 1.1 (0.6-1.2) mg/dL Estimated GFR (MDRD) 65 L (>89) Glucose 141 H (70-100) mg/dL Lactic Acid 1.3 (0.5-2.2) mmol/L Calcium 9.2 (8.5-10.3) mg/dL Magnesium 2.1 (1.7-2.8) mg/dL Total Bilirubin 1.2 H (0.2-1.0) mg/dL AST 26 (10-42) IU/L ALT 43 (10-60) IU/L Alkaline Phosphatase 49 (42-121) IU/L Total Protein 7.3 (6.7-8.2) g/dL Albumin 4.2 (3.2-5.5) g/dL Globulin 3.1 (2.1-4.2) g/dL Albumin/Globulin Ratio 1.4 (1.0-2.2) Lipase 28 (22-51) U/L Urine Color YELLOW Urine Clarity CLEAR (CLEAR) Urine pH 6.0 (5.0-7.5) PH Ur Specific [place] 1.015 (1.002-1.030) Urine Protein NEGATIVE (NEGATIVE) mg/dL Urine Glucose (UA) NEGATIVE (NEGATIVE) mg/dL Urine Ketones NEGATIVE (NEGATIVE) mg/dL Urine Occult Blood NEGATIVE (NEGATIVE) Urine Nitrite NEGATIVE (NEGATIVE) Urine Bilirubin NEGATIVE (NEGATIVE) Urine Urobilinogen 0.2 (NORMAL) (NORMAL) E.U./dL Ur Leukocyte Esterase NEGATIVE (NEGATIVE) Ur Microscopic Review NOT INDICATED Urine Culture Comments NOT INDICATED Stl C. diff Tox B Gene (NEGATIVE) 03/06/20 Range/Units 15:00 WBC 7.1 (4.8-10.8) x10^3/uL RBC 3.41 L (4.70-6.10) 10^6/uL Hgb 11.3 L (14.0-18.0) g/dL Hct 32.8 L (42.0-52.0) % MCV 96.2 H (80.0-94.0) fL MCH 33.1 H (27.0-31.0) pg MCHC 34.5 (32.0-36.0) g/dL RDW 16.9 H (12.0-15.0) % Plt Count 27 L* (130-450) 10^3/uL MPV TNP Neut # (Auto) 4.3 (1.5-6.6) 10^3/uL Lymph # (Auto) 1.7 (1.5-3.5) 10^3/uL [place] # (Auto) 1.0 (0.0-1.0) 10^3/uL Eos # (Auto) 0.0 (0.0-0.7) 10^3/uL Baso # (Auto) 0.0 (0.0-0.1) 10^3/uL Absolute Nucleated RBC 0.00 x10^3/uL Nucleated RBC % 0.0 /100WBC Platelet Estimate DECREASED (<130,000) (NORMAL) Platelet Morphology NORMAL APPEARANCE (NORMAL) RBC Morph Micro Appear NORMAL APPEARANCE (NORMAL) Sodium (135-145) mmol/L Potassium (3.5-5.0) mmol/L Chloride (101-111) mmol/L Carbon Dioxide (21-32) mmol/L Anion Gap (6-13) BUN (6-20) mg/dL Creatinine (0.6-1.2) mg/dL Estimated GFR (MDRD) (>89) Glucose (70-100) mg/dL Lactic Acid (0.5-2.2) mmol/L Calcium (8.5-10.3) mg/dL Magnesium (1.7-2.8) mg/dL Total Bilirubin (0.2-1.0) mg/dL AST (10-42) IU/L ALT (10-60) IU/L Alkaline Phosphatase (42-121) IU/L Total Protein (6.7-8.2) g/dL Albumin (3.2-5.5) g/dL Globulin (2.1-4.2) g/dL Albumin/Globulin Ratio (1.0-2.2) Lipase (22-51) U/L Urine Color Urine Clarity (CLEAR) Urine pH (5.0-7.5) PH Ur Specific [place] (1.002-1.030) Urine Protein (NEGATIVE) mg/dL Urine Glucose (UA) (NEGATIVE) mg/dL Urine Ketones (NEGATIVE) mg/dL Urine Occult Blood (NEGATIVE) Urine Nitrite (NEGATIVE) Urine Bilirubin (NEGATIVE) Urine Urobilinogen (NORMAL) E.U./dL Ur Leukocyte Esterase (NEGATIVE) Ur Microscopic Review Urine Culture Comments Stl C. diff Tox B Gene (NEGATIVE) Assessment/Plan - Problem List (1) General weakness Impression: Progressive , nonfocal weakness with treatment for myleodysplasia, and possible progression of disease Evaluated by PT today who will see again in AM, will need Home health PT (Evaluation today affected by delerium , impulsiveness after a dose of oxy codone) (2) Fever Impression: So far, no infectious soucre identified, last febrile last night (have discussed w/ that thus far infection is not the cause of the fever) urine cx negative, Blood cultures from 03/06 (peripheral and from infusaport) NGTD, CT chest, ABD, pelvis w/ no clear source C dif negative Unlikely r/t Vindaza at this point per oncology Dr Knight considering adding corticosteroids if blood cultures remain negative Qualifiers: Fever type: unspecified Qualified Code(s): R50.9 - Fever, unspecified (3) Protein-calorie malnutrition, severe Impression: Evaluated by Sharyn LOMBARDO Patient has nutrition intake of < 50% or recommended x >2 weeks, / no appetite for 2 weeks, 12% weight loss in 4 motnhs and increaising weakness x 3 weeks Nutrition making recommendations (4) Myelodysplastic syndrome Impression: Per Dr Reed note Multiple Myeloma dx 2010, s/p stem cell transplant 2015, followed by maintenance therapy for MM post transplant . In Jul 2018, myelodysplasia diagnosed, Has been on vindaza . Dr. Knight plans to hold vindaza given clinical decline/ reduced performance status Jacqueline Martinez has consulted previously for palliative care, which spouse is not yet ready to add Continue his home prophylactic bactrim, fluconazole, acycycliver (5) Thrombocytopenia Impression: No evident bleeding, 29 K on admit , 23 K today; recheck in AM Fall precautions Monitor for any bleeding (6) BPH (benign prostatic hyperplasia) Impression: on flomax at home, resume (7) Chronic pain Impression: On bid gabapentin and high dose bedtime gabapentin (1800 mg) amitriptyline for perpheral neuropathy
[2020-03-07] MEDS ORDERED: AMITRIPTYLINE 25 MG TABLET PO PRN (19:45)
[2020-03-07] MEDS ORDERED: oxyCODONE 5 MG TABLET PO STA (21:06)
[2020-03-07] MEDS: GABAPENTIN 100 MG CAPSULE PO SCH (21:26)
[2020-03-07] MEDS: ACYCLOVIR 200 MG CAPSULE PO SCH (21:26)
[2020-03-07] MEDS: TAMSULOSIN 0.4 MG CAPSULE PO SCH (21:26)
[2020-03-07] MEDS: FLUCONAZOLE 100 MG TABLET PO SCH (21:26)
[2020-03-07] MEDS ORDERED: GABAPENTIN 300 MG CAPSULE PO SCH (23:00)
[2020-03-08] MEDS: ACETAMINOPHEN 325 MG TABLET PO PRN ×4 (00:12→18:07)
[2020-03-08] MEDS: SODIUM CHLORIDE FLUSH 0.9% 10 ML SYRINGE IVP SCH ×3 (00:12→16:53)
[2020-03-08] MEDS: SODIUM CHLORIDE 0.9% 1,000 ML IV SCH (03:22)
[2020-03-08] MEDS: PANTOPRAZOLE 40 MG TABLET PO SCH (05:55)
[2020-03-08 06:16] LABS: BASOPHILS % (AUTO) 0.4 %; EOSINOPHILS % (AUTO) 0.6 %; HGB - HEMOGLOBIN 10.1 g/dL (14.0-18.0); LYMPHOCYTES # (AUTO) 1.3 10^3/uL (1.5-3.5); LYMPHOCYTES % (AUTO) 24.4 %; MEAN CORPUSCULAR HEMOGLOBIN 32.5 pg (27.0-31.0); MEAN CORPUSCULAR HGB CONC 33.9 g/dL (32.0-36.0); MEAN CORPUSCULAR VOLUME 95.8 fL (80.0-94.0); MEAN PLATELET VOLUME 11.6 fL (7.4-11.4); MONOCYTES % (AUTO) 18.9 %; NEUTROPHILS # (AUTO) 2.9 10^3/uL (1.5-6.6); NEUTROPHILS % (AUTO) 54.7 %; RED BLOOD COUNT 3.11 10^6/uL (4.70-6.10); RED CELL DISTRIBUTION WIDTH 17.2 % (12.0-15.0); WHITE BLOOD COUNT 5.3 x10^3/uL (4.8-10.8)
[2020-03-08 06:18] LABS: PLT - PLATELET COUNT 23 10^3/uL (130-450)
[2020-03-08 06:25] LABS: CALCIUM 8.3 mg/dL (8.5-10.3); CREATININE 0.9 mg/dL (0.6-1.2)
[2020-03-08] MEDS: MULTIVITAMIN TABLET PO SCH (08:13)
[2020-03-08] MEDS: FINASTERIDE 5 MG TABLET PO SCH (08:53)
[2020-03-08] MEDS: GABAPENTIN 100 MG CAPSULE PO SCH ×2 (08:53→21:12)
[2020-03-08] MEDS: FLUCONAZOLE 100 MG TABLET PO SCH ×2 (08:53→20:35)
[2020-03-08] MEDS: ACYCLOVIR 200 MG CAPSULE PO SCH ×2 (08:54→20:34)
[2020-03-08] MEDS: TAMSULOSIN 0.4 MG CAPSULE PO SCH ×2 (08:54→20:35)
[2020-03-08] MEDS ORDERED: SULFAMETH/TRIMETH DS 800/160 MG TABLET PO SCH (09:00)
--- NOTE | 2020-03-08 12:11 | PROVIDER PROGRESS NOTE ---
Subjective - Prog Note Date Prog Note Date: 03/08/20 Prog Note Time: 12:08 (seen earlier today) - Subjective Subjective: Patient not responding appropriately to orientation questions (got oxycodone 5 ~ 9pm) Per he was up all night having to urinate frequently notes a temperature last night (states he runs low) (isolated 38.5 at ~ 9pm) Daughter Carmen (works here at [employer] in accounting), also in to see her dad this morning notes he does take 1800 mg qhs for his neuropathy and notes she was told that it "can go much higher if needed" seen again ~ 1pm, sitting up in lounge chair, had small amount strawberry shake, Pt stating just behind Left ear tender Current Medications - Current Medications Current Medications: Active Medications Generic Name Dose Route Start Last Admin Trade Name Freq PRN Reason Stop Dose Admin Acetaminophen 650 mg 03/06/20 19:26 03/08/20 18:07 Tylenol PO 650 mg Q4HR PRN Administration Pain 1 to 4 Acyclovir 400 mg 03/07/20 21:00 03/08/20 08:54 Zovirax PO 400 mg BID CRISTINE Administration Amitriptyline HCl 25 mg 03/07/20 19:45 Elavil PO QPM PRN Insomnia Finasteride 5 mg 03/08/20 09:00 03/08/20 08:53 Proscar PO 5 mg DAILY CRISTINE Administration Fluconazole 200 mg 03/07/20 21:00 03/08/20 08:53 Diflucan PO 200 mg BID CRISTINE Administration Gabapentin 100 mg 03/07/20 21:00 03/08/20 08:53 Neurontin PO 100 mg BID CRISTINE Administration Gabapentin 1,800 mg 03/08/20 12:50 Neurontin PO QPM CRISTINE Multivitamins 1 tab 03/08/20 08:00 03/08/20 08:13 Theragran PO 1 tab DAILYWM CRISTINE Administration Pantoprazole Sodium 40 mg 03/07/20 07:00 03/08/20 05:55 Protonix PO 40 mg QDAC CRISTINE Administration Sodium Chloride 10 ml 03/06/20 19:26 03/06/20 20:42 Normal Saline Flush 0.9% IVP 10 ml PRN PRN Administration NEEDED PER PROVIDER ORDERS Sodium Chloride 10 ml 03/07/20 01:00 03/08/20 16:53 Normal Saline Flush 0.9% IVP 20 ml 0100,0900,1700 CRISTINE Administration Tamsulosin HCl 0.4 mg 03/07/20 21:00 03/08/20 08:54 Flomax PO 0.4 mg BID CRISTINE Administration Finasteride 5 mg PO DAILY 09/02/18 Tamsulosin [Flomax] 0.4 mg PO BID 09/02/18 Ondansetron Odt [Zofran Odt] 8 mg ORAL Q8HR PRN 09/20/18 Gabapentin 1,800 mg PO DAILY PM 12/26/19 Acetaminophen [Tylenol Extra Strength] 1,000 mg PO BID 03/07/20 Acyclovir 400 mg PO BID 03/07/20 Amitriptyline [Elavil] 25 mg PO QPM 03/07/20 Cholecalciferol (Vitamin D3) [Vitamin D3] 125 mcg PO DAILY 03/07/20 Cyanocobalamin/Folic AC/Vit B6 [Folbee Tablet] 1 tab PO DAILY 03/07/20 Cyclobenzaprine [Flexeril] 10 mg PO QPM PRN 03/07/20 Fluconazole 200 mg PO BID 03/07/20 Gabapentin 100 mg PO BID 03/07/20 Glucosamine Sulfate Dipot Chlr [Glucosamine Sulfate] 1,500 mg PO DAILY 03/07/20 Lidocaine [Aspercreme Lidocaine] 1 patch TOP Q12H PRN 03/07/20 Multivit,Iron,Mins/Folic Acid [Centrum Specialist Heart Tab] 1 tab PO DAILY 03/07/20 Sulfamethoxazole/Trimethoprim [Bactrim 400-80 mg Tablet] 1 tab PO DAILY 03/07/20 Objective - Vital Signs/Intake & Output Reviewed Vital Signs: Yes Vital Signs: Vital Signs x48h Temp Pulse Resp BP Pulse Ox 03/08/20 09:28 37.8 C H 03/08/20 08:00 38.2 C H 83 18 135/66 H 93 03/08/20 04:51 37.1 C 89 22 145/77 H 98 38.5 at ~ 9pm, otherwise afebrile overnight, 38.2 at 8am, (did get tylenol at 6a, ) 38.2 resolved on recheck at 9:28 to 37.8. Intake & Output: Intake & Output 03/05/20 03/06/20 03/07/2013/20 23:59 23:59 23:59 23:59 Intake Total 1999 2929 1500 Output Total 50 2200 675 Balance 1950 730 825 - Objective General Appearance: positive: No acute distress, Other (Patient lying in bed, intermittantly opens eyes, Labor day in response to orientation quesions, picking a bit at sheets. Noted some relief of neck pain with cold pack Later in day he "startled" when I entered the room, and made a protective movement with h and above his left ear.) Eyes Bilateral: positive: Normal inspection, EOMI (eyes track evenly) ENT: positive: Other (Dry tongue) Neck: positive: Other (moves head forward without difficulty and rotates head without difficulty) Respiratory: positive: Chest non-tender, No respiratory distress, Breath sounds nml Cardiovascular: positive: Regular rate & rhythm, No murmur, Other (Right chest wall infusaport site unremarkable, RN discontinued iVF) Abdomen: positive: Nml bowel sounds, No distention, Other (no suprapubic tenderness, adult pad on). negative: Tenderness Skin: positive: Warm, Dry Neurologic/Psychiatric: positive: Other (as above not orientedto situation or time (oxycodone late last night)). negative: Oriented x3 - Lab Results Fish Bones: 03/09/20 06:45 03/09/20 06:45 Other Labs: Lab Results x24hrs 03/08/20 03/08/20 Range/Units 06:00 06:00 WBC 5.3 (4.8-10.8) x10^3/uL RBC 3.11 L (4.70-6.10) 10^6/uL Hgb 10.1 L (14.0-18.0) g/dL Hct 29.8 L (42.0-52.0) % MCV 95.8 H (80.0-94.0) fL MCH 32.5 H (27.0-31.0) pg MCHC 33.9 (32.0-36.0) g/dL RDW 17.2 H (12.0-15.0) % Plt Count 23 L* (130-450) 10^3/uL MPV 11.6 H (7.4-11.4) fL Neut # (Auto) 2.9 (1.5-6.6) 10^3/uL Lymph # (Auto) 1.3 L (1.5-3.5) 10^3/uL [place] # (Auto) 1.0 (0.0-1.0) 10^3/uL Eos # (Auto) 0.0 (0.0-0.7) 10^3/uL Baso # (Auto) 0.0 (0.0-0.1) 10^3/uL Absolute Nucleated RBC 0.00 x10^3/uL Nucleated RBC % 0.0 /100WBC Sodium 128 L (135-145) mmol/L Potassium 3.4 L (3.5-5.0) mmol/L Chloride 96 L (101-111) mmol/L Carbon Dioxide 25 (21-32) mmol/L Anion Gap 7.0 (6-13) BUN 9 (6-20) mg/dL Creatinine 0.9 (0.6-1.2) mg/dL Estimated GFR (MDRD) 82 L (>89) Glucose 114 H (70-100) mg/dL Calcium 8.3 L (8.5-10.3) mg/dL blood cultures remain NGTD on Day 2 Assessment/Plan - Problem List (1) General weakness Impression: (1) General weakness Impression: Progressive possibly with progression of MDS, and cumulative effect of regular Vindaza corses, nonfocal weakness, Needs HHPT once discharged but still with waxing waning delerium (of note he was impulsive at time of eval yesterday after delerium w/ oxycodone), so not quite at baseline. Hopefully today, will be with better cognition at time of eval but unfortunately was given a one time dose of oxycodone 5 mg again last night. PT and OT will reeval (Addendum; late in day , OT notes did poorly on mini mental) (2) Fever Impression: T max 38.5 at ~ 9 pm last night 03/07 occasional isolated, self limited temperatures, no rigors,, Dr Knight aware (present before admission, seen in clinic 03/05) No infectious source identified thus far (Urine neg, Blood cultures ( peripheral and port) neg, CT head, CT chest ABd, Pelvis neg for source) C dif negative, Unlikely r/t Vindaza at this point per Dr Knight Staff noted cough, low suspician for Covid, CT chest negative on admission,but testing for Covid Dr Knight today advised NOt continue the Bactrim SS daily PCP prophylaxis as can cause fevers.; (Stop Bactrim) Continue to monitor cultures (low probability of yeast in blood/ is on fluconazole prophylaxis, but that is only likely organism that would be long to grow) 3) Chronic Pain and Headache: continues on his home gabapentin bid , and 1800 mg at HS, and TCA for his chronic back pain. Headache location continues to vary neck pain, to top of head pain, and sens itive behind left hear (allodynia like, tender to light touch behind ear, Head CT negative on admission. Nonfocal exam . Waxing waning Jacqueline Martinez met with patient; At Dr Reed recommendation start Decadron 2 mg , then4 mg daily (since blood cultures negative, if inflammatory process causing MORENO), MORENO not resolved ~ 2 hr after Decadron, giving trial dose of imitrex give some light sensitivity with headaches (4) Protein-calorie malnutrition, severe Impression: Evaluated by Sharyn LOMBARDO 03/07 Patient has nutrition intake of < 50% or recommended x >2 weeks, / no appetite for 2 weeks, 12% weight loss in 4 motnhs and increaising weakness x 3 weeks Nutrition making recommendations notes patient does like strawberry shake (5) Myelodysplastic syndrome Impression: Per Dr Reed note Multiple Myeloma Dx'd 2010 s/p stem cell transplant 2015, sp maintenance therapy for MM post transplant until 08/14 evolution to myelodysplasia . Has been getting Vindaza (last 5 day course late January) (6) Thrombocytopenia Impression: , related to MDS; Platelets stable Fall precautions NO signs of bleeding (6) BPH (benign prostatic hyperplasia) Impression: on flomax (home med) (2) Fever Qualifiers: Fever type: unspecified Qualified Code(s): R50.9 - Fever, unspecified
[2020-03-08] MEDS ORDERED: GABAPENTIN 300 MG CAPSULE PO SCH (12:50)
[2020-03-08] MEDS ORDERED: dexAMETHasone 4 MG TABLET PO ONE (14:09)
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
[2020-03-08] MEDS ORDERED: SUMAtriptan 25 MG TABLET PO ONE (18:13)
[2020-03-08] MEDS ORDERED: BACITRACIN ZINC OINT 1 PACKET TOP PRN (19:38)
[2020-03-09] MEDS: SODIUM CHLORIDE FLUSH 0.9% 10 ML SYRINGE IVP SCH ×2 (01:23→09:06)
[2020-03-09] MEDS: PANTOPRAZOLE 40 MG TABLET PO SCH (06:39)
[2020-03-09] MEDS: SODIUM CHLORIDE FLUSH 0.9% 10 ML SYRINGE IVP PRN ×2 (06:41→14:53)
[2020-03-09 07:04] LABS: CALCIUM 8.8 mg/dL (8.5-10.3)
[2020-03-09 07:24] LABS: BASOPHILS % (AUTO) 0.3 %; HGB - HEMOGLOBIN 10.6 g/dL (14.0-18.0); LYMPHOCYTES # (AUTO) 1.4 10^3/uL (1.5-3.5); LYMPHOCYTES % (AUTO) 24.4 %; MEAN CORPUSCULAR HEMOGLOBIN 33.9 pg (27.0-31.0); MEAN CORPUSCULAR HGB CONC 35.2 g/dL (32.0-36.0); MEAN CORPUSCULAR VOLUME 96.2 fL (80.0-94.0); MEAN PLATELET VOLUME 13.1 fL (7.4-11.4); MONOCYTES # (AUTO) 1.2 10^3/uL (0.0-1.0); MONOCYTES % (AUTO) 21.6 %; NEUTROPHILS % (AUTO) 53.2 %; RED BLOOD COUNT 3.13 10^6/uL (4.70-6.10); RED CELL DISTRIBUTION WIDTH 17.3 % (12.0-15.0); WHITE BLOOD COUNT 5.7 x10^3/uL (4.8-10.8)
[2020-03-09 07:30] LABS: PLT - PLATELET COUNT 33 10^3/uL (130-450)
[2020-03-09] MEDS: MULTIVITAMIN TABLET PO SCH (07:53)
[2020-03-09] MEDS ORDERED: GABAPENTIN 100 MG CAPSULE PO SCH (09:00)
[2020-03-09] MEDS: FINASTERIDE 5 MG TABLET PO SCH (09:05)
[2020-03-09] MEDS: FLUCONAZOLE 100 MG TABLET PO SCH (09:05)
[2020-03-09] MEDS: TAMSULOSIN 0.4 MG CAPSULE PO SCH (09:06)
[2020-03-09] MEDS: ACYCLOVIR 200 MG CAPSULE PO SCH (09:06)
[2020-03-09] MEDS: ACETAMINOPHEN 325 MG TABLET PO PRN (14:05)
[2020-03-09] MEDS ORDERED: SUMAtriptan 25 MG TABLET PO ONE (14:40)
--- NOTE | 2020-03-09 15:03 | PROVIDER PROGRESS NOTE ---
Subjective - Prog Note Date Prog Note Date: 03/09/20 Prog Note Time: 15:00 (seen several x today) - Subjective Subjective: See Discharge Summary as well dated this same day Per Nursing notes o headache pain over night ( states he has pain everywhere) He was up in chair ~ 45 minutes when daughter Carmen in room, he noted only pain behind RIght (not left) ear at that time, got up with assist from meto return to bed, no evident pain or holding on to head. Seen later again ~ 3pm, states head feels stabby Current Medications - Current Medications Current Medications: Active Medications Generic Name Dose Route Start Last Admin Trade Name Freq PRN Reason Stop Dose Admin Acetaminophen 650 mg 03/06/20 19:26 03/09/20 14:05 Tylenol PO 650 mg Q4HR PRN Administration Pain 1 to 4 Acyclovir 400 mg 03/07/20 21:00 03/09/20 09:06 Zovirax PO 400 mg BID CRISTINE Administration Amitriptyline HCl 25 mg 03/07/20 19:45 Elavil PO QPM PRN Insomnia Bacitracin 1 packet 03/08/20 19:38 03/08/20 20:34 Bacitracin TOP 1 packet PRN PRN Administration Skin Care Finasteride 5 mg 03/08/20 09:00 03/09/20 09:05 Proscar PO 5 mg DAILY CRISTINE Administration Fluconazole 200 mg 03/07/20 21:00 03/09/20 09:05 Diflucan PO 200 mg BID CRISTINE Administration Gabapentin 1,800 mg 03/08/20 12:50 03/08/20 21:12 Neurontin PO 1,800 mg QPM CRISTINE Administration Gabapentin 200 mg 03/09/20 09:00 03/09/20 09:06 Neurontin PO 200 mg DAILY CRISTINE Administration Heparin Sodium (Beef Lung) 30 - 50 unit 03/09/20 06:24 03/09/20 06:41 IVP 50 unit PRN PRN Administration Port Protocol (<24 hours) Multivitamins 1 tab 03/08/20 08:00 03/09/20 07:53 Theragran PO 1 tab DAILYWM CRISTINE Administration Pantoprazole Sodium 40 mg 03/07/20 07:00 03/09/20 06:39 Protonix PO 40 mg QDAC CRISTINE Administration Sodium Chloride 10 ml 03/06/20 19:26 03/09/20 14:53 Normal Saline Flush 0.9% IVP 10 ml PRN PRN Administration NEEDED PER PROVIDER ORDERS Sodium Chloride 10 ml 03/07/20 01:00 03/09/20 09:06 Normal Saline Flush 0.9% IVP Not Given 0100,0900,1700 CRISTINE Tamsulosin HCl 0.4 mg 03/07/20 21:00 03/09/20 09:06 Flomax PO 0.4 mg BID CRISTINE Administration Finasteride 5 mg PO DAILY 09/02/18 Tamsulosin [Flomax] 0.4 mg PO BID 09/02/18 Ondansetron Odt [Zofran Odt] 8 mg ORAL Q8HR PRN 09/20/18 Gabapentin 1,800 mg PO DAILY PM 12/26/19 Acetaminophen [Tylenol Extra Strength] 1,000 mg PO BID 03/07/20 Acyclovir 400 mg PO BID 03/07/20 Amitriptyline [Elavil] 25 mg PO QPM 03/07/20 Cholecalciferol (Vitamin D3) [Vitamin D3] 125 mcg PO DAILY 03/07/20 Cyanocobalamin/Folic AC/Vit B6 [Folbee Tablet] 1 tab PO DAILY 03/07/20 Cyclobenzaprine [Flexeril] 10 mg PO QPM PRN 03/07/20 Fluconazole 200 mg PO BID 03/07/20 Gabapentin 100 mg PO BID 03/07/20 Glucosamine Sulfate Dipot Chlr [Glucosamine Sulfate] 1,500 mg PO DAILY 03/07/20 Lidocaine [Aspercreme Lidocaine] 1 patch TOP Q12H PRN 03/07/20 Multivit,Iron,Mins/Folic Acid [Centrum Specialist Heart Tab] 1 tab PO DAILY 03/07/20 Sulfamethoxazole/Trimethoprim [Bactrim 400-80 mg Tablet] 1 tab PO DAILY 03/07/20 Objective - Vital Signs/Intake & Output Reviewed Vital Signs: Yes Vital Signs: Vital Signs x48h Temp Pulse Resp BP Pulse Ox 03/09/20 08:00 37.0 C 89 20 125/90 H 96 Intake & Output: Intake & Output 03/06/20 03/07/20 03/08/20 03/09/20 23:59 23:59 23:59 23:59 Intake Total 1999 Output Total 50 2200 1225 1475 Balance 1950 413 725 -755 - Objective General Appearance: positive: Other (Lying in bed this morning, alert, not oriented with orientation questions, not agitated, 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, eyes track evenly, pupils equal, face symmetric, up in chair at noon, able to push off chair to standing with moderate assist of one and pivot.) Eyes Bilateral: positive: PERRL, EOMI ENT: positive: Other (front of scalp with unchanged abraded area, neck w/o ROEL, dry mouth) Respiratory: positive: Chest non-tender, No respiratory distress, Breath sounds nml Cardiovascular: positive: Regular rate & rhythm, No murmur Abdomen: positive: No organomegaly, Nml bowel sounds, No distention, Other (adult pad on this morning) Extremities: negative: Pedal edema Neurologic/Psychiatric: positive: Other (tangential in responses, with effort comes up with year and season, and 's name, follows commands, picking at things (straw wrapper, pulled off his name band)) - Lab Results Fish Bones: 03/09/20 06:45 03/09/20 06:45 Other Labs: Lab Results x24hrs 03/09/20 03/09/20 03/08/20 Range/Units 06:45 06:45 11:15 WBC 5.7 (4.8-10.8) x10^3/uL RBC 3.13 L (4.70-6.10) 10^6/uL Hgb 10.6 L (14.0-18.0) g/dL Hct 30.1 L (42.0-52.0) % MCV 96.2 H (80.0-94.0) fL MCH 33.9 H (27.0-31.0) pg MCHC 35.2 (32.0-36.0) g/dL RDW 17.3 H (12.0-15.0) % Plt Count 33 L* (130-450) 10^3/uL MPV 13.1 H (7.4-11.4) fL Neut # (Auto) 3.0 (1.5-6.6) 10^3/uL Lymph # (Auto) 1.4 L (1.5-3.5) 10^3/uL [place] # (Auto) 1.2 H (0.0-1.0) 10^3/uL Eos # (Auto) 0.0 (0.0-0.7) 10^3/uL Baso # (Auto) 0.0 (0.0-0.1) 10^3/uL Absolute Nucleated RBC 0.00 x10^3/uL Nucleated RBC % 0.0 /100WBC Sodium 128 L (135-145) mmol/L Potassium 3.7 (3.5-5.0) mmol/L Chloride 92 L (101-111) mmol/L Carbon Dioxide 24 (21-32) mmol/L Anion Gap 12.0 (6-13) BUN 12 (6-20) mg/dL Creatinine 1.0 (0.6-1.2) mg/dL Estimated GFR (MDRD) 72 L (>89) Glucose 115 H (70-100) mg/dL Calcium 8.8 (8.5-10.3) mg/dL Coronavirus (PCR) NEGATIVE Assessment/Plan - Problem List (1) General weakness Impression: (1) General weakness Impression: Progressive possibly with progression of MDS, and cumulative effect of regular Vindaza corses, nonfocal weakness, Needs HHPT once discharged but still with waxing waning delerium which is interfering with assessment and functional abilities PT will reasses in am (unable to work with him today as he declined) Unable to discharge due to delerium See later discharge summary this same date when patient much improved in afternoon 2) Delerium Waxing waning delerium persists since after Oxycodone dose Oxcodone 5 mg on Wed morning (and repeat oxycodone Wed ~ bedtime) Unclear if wakefulness all night related to altered mentation , then had repeat dose pm Wed) Sodium stable at 128 (do not suspect this is contributing) Opiates have been discontinued, (3) Chronic Pain and Headache: continues on his home gabapentin bid , and 1800 mg at HS, and TCA for his chr onic back pain. Headache location continues to vary neck pain, to top of head pain, and sensitive behind left hear (allodynia like, tender to light touch behind ear, Head CT negative on admission. Nonfocal exam . Waxing waning Did seem to get relief with Imitrex last evening. At Dr Reed recommendation started Decadron 2 mg last pm; intended 4 mg daily (if inflammatory process), however , after Decadron was awake all night Will try one additional dose imitrex, If no improvement will consider repeat head CT , but exam nonfocal, and location of pain varies. hyponatremia 128 stable and do not suspect cause of headache . Reluctant to give more fluid as did get IV NS on admission. may have some element of SIADH with pain 4)Fever Last temp 38.2 03/08 8am, afebrile since occasional isolated, self limited temperatures, no rigors,, Dr Knight aware (present before admission, seen in clinic 03/05) No infectious source identified thus far (Urine neg, Blood cultures ( peripheral and port) neg, CT head, CT chest ABd, Pelvis neg for source) C dif negative, Covid neg Unlikely r/t Vindaza at this point per Dr Knight Per Dr Knight on 03/08 advised NOt continue the Bactrim SS daily PCP prophylaxis as can cause fevers.; Continue to monitor cultures (low probability of yeast in blood/ is on fluconazole prophylaxis, but that is only likely organism that would be long to grow) (4) Protein-calorie malnutrition, severe Impression: Evaluated by Sharyn LOMBARDO 03/07 Patient has nutrition intake of < 50% or recommended x >2 weeks, / no appetite for 2 weeks, 12% weight loss in 4 motnhs and increaising weakness x 3 weeks Nutrition making recommendations notes patient does like strawberry shake (5) Myelodysplastic syndrome Impression: Per Dr Reed note Multiple Myeloma Dx'd 2010 s/p stem cell transplant 2015, sp maintenance therapy for MM post transplant until 08/14 evolution to myelodysplasia . Has been getting Vindaza (last 5 day course late January) Jacqueline will see again today sometime this afternoon given Ms Gonzalez anxiety about his decline, appreciate Gus follow up Plan above, re: post transplant prophylaxis; not continuing bactrim, continues fluconazole, acyclovir (6) Thrombocytopenia Impression: , related to MDS; Platelets stable Fall precautions NO signs of bleeding (6) BPH (benign prostatic hyperplasia) Impression: (2) Fever Qualifiers: Fever type: unspecified Qualified Code(s): R50.9 - Fever, unspecified
[2020-03-09 16:33] VITALS: BP 108/75
--- NOTE | 2020-03-09 17:01 | Discharge Plan ---
Discharge Plan Problem Reviewed?: Yes Disposition: Home, Self Care Condition: Stable Prescriptions: SUMAtriptan [Imitrex] 25 mg PO ONCE #30 tablet Diet: Regular Activity Restrictions: with walker and assist Shower Restrictions: No (use chair in shower) Driving Restrictions: Yes Assistance Devices: Wheelchair, Walker, Crutches Weight Bearing: Full Weight Health Concerns: Generalized weakness This may be progressive weakness from cumulative effect of chemotherapy and the myelodysplasia No infection was found as the cause, (negative covid, negative urine culture, negative urinalysis, Chest , Abdomen and Pelvis CT without infectous process, Cdif negative, there were not new medications Physical therapy evaluated you and recommended Home Health Physical Therapy to maintain strength and do safety assessment Case management/Social work will arrange that Use your walker for activity /fall risk Check what assistive equipment you have in the garage (e.g do you still need bedside commode, shower chair ? etc) Fever: You have had intermittant fevers, (highest temp in the last 24 hours was 38.2 C . Afebrile last 24 hrs. As above no infectious source was found. Dr Knight recommended trying dexamethasone (steroid), but the 2 mg dose on 8 pm seemed to keep you up all night.) We are not continuing the steroid Dr. Knight advised to STOP the BACTRIM as it can cause fevers. Bactrim stopped. Ongoing follow up with Dr Knight If uncomfortable with fever, can take 650 mg tylenol (maximum 4 grams daily) Avoid NSAIDS (e.g ibuprofen) due to low platelets Headaches; Head cat scan showed no bleed, no mass, no abscess or fluid collection. Moderate cerebral volume loss, some chronic white matter small vessel changes (associated with blood pressure over many years) It was noted that you seemed to have visual component to your headaches (light sensitive), Imitrex 25 mg (a migraine medication) seemed to help the headache on 03/08 pm, It also seemed to help after 03/09 3:30 pm dosing. Since opiates (low dose oxycodone, morphine ) resulted in confusion when tried for headache, if there is a migraine component, as discussed, Rx for imitrex 25 mg tablets sent to [facility], Can repeat dose in 2 hrs (of 25 mg) Maximum dose in 24 hrs is 200 mg Avoid over use, (not intended for daily use), as can result in "more headaches", rebound headaches. Try to cut tylenol down to IF NEEDED use rather than daily (regular tylenol use can aggravate headaches too if they are migraines) For chronic pain continue your gabapentin and amitryptilline Myelodysplasia Follow up with Dr Knight Continue preventative fluconazole and acyclovir. As above stop Bactrim as per Dr Knight's instruction Severe Protein calorie malnutrition SMall frequent meals/snacks , high calorie,high protein, whatever tastes good to help keep up strength Follow-Up Care: Home Health - PT No Smoking: If you smoke, Please STOP! Call for help. Follow-up with: Geronimo Bella MD [Primary Care Provider] -
--- NOTE | 2020-03-10 10:28 | DISCHARGE SUMMARY ---
Discharge Summary Admit Date: 03/06/20 Discharge Date: 03/09/20 Discharging Provider: GALINA Estrada Primary Care Provider: Geronimo Bella Oncologist Dr George Noguera Code Status: Attempt Resuscitation Condition at Discharge: Stable Discharge Disposition: 01 Home, Self Care Discharge Facility Name: [facility] - DIAGNOSES Admission Diagnoses: Fever Generalized Weakness Myelodysplastic syndrome Thrombocytopenia BPH Discharge Diagnoses with Status of Each Condition: Generalized Weakness Fever Delerium Headache Chronic Pain Myelodysplastic syndrome Thrombocytopenia Severe Protein calorie Malnutrition BPH - HPI History of Present Illness: Patient is 79-year-old male with history of multiple myeloma and currently myelodysplastic syndrome who sees Dr. Noguera at the [facility] clinic. He is on Vidaza which he last took on February 20, 2020. It is usually a 5-day course. He presented today with his at bedside with complaint of intermittent fever which started about the same time as when he started Vidaza. She reported a temperature as high as 101.8 Fahrenheit. His temperature at bedside was 102.5 Fahrenheit. He has also been significantly weak over the past 3 weeks. Last night he fell out of bed. His did not hear him fall but found him on the floor covered up with blankets. She called 911 and EMS helped pick him up. He saw his oncologist at the [facility] 2 days ago. For that visit he came in in a wheelchair. Going back 4 weeks ago the patient was able to do some weeding in the garden.Finally his also reports that he has had no appetite for the past 2 weeks. He was also incontinent of urine and bowel yesterday. In the ED the patient was given IV hydration with no change in his clinical status. As a result of his fever and weakness he was presented for admission for further work-up. This history was mainly obtained from the patient's because he appears somewhat lethargic and not readily responding to questions asked. It seems it takes him a while to process and give a response. He complains of pain in his head. The top of his head is tender to the lightest touch. He also complains of back pain. He denies dyspnea, chest pain, nausea or vomiting. His primary care physician is Dr. Geronimo Bella. He has also been seen by Jacqueline Martinez with palliative care once. - CONSULTS | PROCEDURES Consultations: none (Jacqueline Martinez/Palliative care familiar w/ patient visited x 2) Procedures: none - HOSPITAL COURSE Hospital Course: 1) General weakness Impression: Progressive possibly with progression of MDS, and cumulative effect of regular Vindaza corses, nonfocal weakness, Infection w/u for fevers and possible infection as cause of weakness negative (see #4) Evaluated by PT and OT woh advised HHPT. Waxing waning delerium interfered with evaluation during admission.h waxing waning delerium which is interfering with assessment and functional abilities Had been unable to discharge due to waxing waning delerium, inattention, related to headache pain but markedly improved late day thursday (see #2) even sitting up in chair reading newspaper and discharged to home with (returning w/ karol) HHPT ordered (OT evjie late 03/09) Mr. Gonzalez demonstrated significantly improved function today. While pt is not yet at his baseline before his fall, he has improved since the fall and is able to perform many ADL with SBA-Filippo. Pt's most difficulty is with [id number] t/f, he is Filippo for initial boost to standing. Pt has raised toilet seats and bed at home which will help somewhat with these t/f. Pt was able to complete toileting tasks well, independent with pericare and able to lean side to side on toilet without difficulty. Pt's spouse shared that she felt like he is ready to return home and states he has a sock aid and reach er available to use at home in addition to other AE. Pt will still benefit from a shower chair and BSC upon d/c home. Pt will also benefit from HH OT/PT/bath aide and increased assistance from spouse or c.g. 2) Delerium Some confusion noted on admission Neg head CT, neg infection w/u, mild hyponatremia 128 Waxing waning delerium worsened that seemed related to an IV morphine dose, and Oxcodone 5 mg on Thu morning (and repeat oxycodone Wed ~ bedtime given for pain (Jacqueline Martinez notes Bertram is not opiate naive) and then with altered sleep wake after Decadron dose pm of 06/08 Unexpected marked improvement in wakefulness/participation when seen by OT late afternoon 03/09 evidently after Headache resolution following imitrex. Recommend avoid opiates if possible future presentations (3) Chronic Pain and Headache: continues on his home gabapentin bid , and 1800 mg at HS, and TCA for his chronic back pain. Headache location after unwitnessed fall with negative head CT continues to vary neck pain, to top of head pain, and sensitive behind left hear (allodynia like, tender to light touch behind ear, Head CT negative on admission. Nonfocal exam . Morphine, oxycodone seemed to illicit delerium Dr. Noguera considered inflammatory process, ? encephalitis; trial Decadron 2 mg w/ plan to start 4 mg daily, but per , after Decadron patient awake all night Given light/noise sensitivity, migraine like, trial imitrex dose with relief (confounded by decadron dose a few hrs earlier) Repeat imitrex dose given 03/09 w/ marked relief. No migraine hx per (patient nodded yes) but does take scheduled tylenol, ? rebound headache somehow. Given rx for imitrex and emphasized to that it is not intended for daily use, and try reducing tylenol to prn 4)Fever occasional isolated, self limited temperatures, no rigors,, Dr Noguera aware (present before admission, seen in clinic 03/05) No infectious source identified (Urine neg, Blood cultures ( peripheral and port) neg, CT head, CT chest ABd, Pelvis neg for source) C dif negative, Covid neg Unlikely r/t Vindaza at this point per Dr Noguera Per Dr Noguera on 03/08 advised NOt continue the Bactrim SS daily PCP prophylaxis as can cause fevers.; Continue to monitor cultures (low probability of yeast in blood/ is on fluconazole prophylaxis, but that is only likely organism that would be long to grow) (4) Protein-calorie malnutrition, severe Patient has nutrition intake of < 50% or recommended x >2 weeks, / no appetite for 2 weeks, 12% weight loss in 4 motnhs and increaising weakness x 3 weeks Nutrition making recommendations notes patient does like strawberry shake (5) Myelodysplastic syndrome Impression: with associtated thrombocytopenia platelets stable ~ 33k Dr noguera planning to hold next course of Vindaza Follow up with Dr. noguera PAS above, re: post transplant prophylaxis; not continuing bactrim (per Dr Noguera in case r/t fevers), continues fluconazole, acyclovir For future admissions, given MDS if labs stable avoid daily labs (h/h stable but hx of transfusion dependent anemia) (6) BPH (benign prostatic hyperplasia) continues Flomax Patient instructions from Discharge Plan Generalized weakness This may be progressive weakness from cumulative effect of chemotherapy and the myelodysplasia No infection was found as the cause, (negative covid, negative urine culture, negative urinalysis, Chest , Abdomen and Pelvis CT without infectous process, Cdif negative, there were not new medications Physical therapy evaluated you and recommended Home Health Physical Therapy to maintain strength and do safety assessment Case management/Social work will arrange that Use your walker for activity /fall risk Check what assistive equipment you have in the garage (e.g do you still need bedside commode, shower chair ? etc) Fever: You have had intermittant fevers, (highest temp in the last 24 hours was 38.2 C . Afebrile last 24 hrs. As above no infectious source was found. Dr Noguera recommended trying dexamethasone (steroid), but the 2 mg dose on 03/08 pm seemed to keep you up all night.) We are not continuing the steroid Dr. Noguera advised to STOP the BACTRIM as it can cause fevers. Bactrim stopped. Ongoing follow up with Dr Noguera If uncomfortable with fever, can take 650 mg tylenol (maximum 4 grams daily) Avoid NSAIDS (e.g ibuprofen) due to low platelets Headaches; Head cat scan showed no bleed, no mass, no abscess or fluid collection. Moderate cerebral volume loss, some chronic white matter small vessel changes (associated with blood pressure over many years) It was noted that you seemed to have visual component to your headaches (light sensitive), Imitrex 25 mg (a migraine medication) seemed to help the headache on 03/08 pm, It also seemed to help after 03/09 3:30 pm dosing. Since opiates (low dose oxycodone, morphine ) resulted in confusion when tried for headache, if there is a migraine component, as discussed, [facility], Can repeat dose in 2 hrs (of 25 mg) Maximum dose in 24 hrs is 200 mg Avoid over use, (not intended for daily use), as can result in "more headaches", rebound headaches. Try to cut tylenol down to IF NEEDED use rather than daily (regular tylenol use can aggravate headaches too if they are migraines) For chronic pain continue your gabapentin and amitryptilline Myelodysplasia Follow up with Dr Noguera Continue preventative fluconazole and acyclovir. As above stop Bactrim as per Dr Noguera's instruction Severe Protein calorie malnutrition SMall frequent meals/snacks , high calorie,high protein, whatev - ALLERGIES Allergies/Adverse Reactions: Allergies Allergy/AdvReac Type Severity Reaction Status Date / Time quinine Allergy Unknown Rash Verified 03/05/20 12:01 morphine AdvReac Hallucinati Verified 03/08/20 12:48 ons oxycodone AdvReac Hallucinati Verified 03/08/20 12:41 ons - MEDICATIONS Home Medications: Ambulatory Orders Medication Instructions Recorded Confirmed Finasteride 5 mg PO DAILY 09/02/18 03/07/20 Tamsulosin [Flomax] 0.4 mg PO BID 09/02/18 03/07/20 Ondansetron Odt [Zofran Odt] 8 mg ORAL Q8HR PRN 09/20/18 03/07/20 Gabapentin 1,800 mg PO DAILY PM 12/26/19 03/07/20 Acyclovir 400 mg PO BID 03/07/20 03/07/20 Amitriptyline [Elavil] 25 mg PO QPM 03/07/20 03/07/20 Cholecalciferol (Vitamin D3) 125 mcg PO DAILY 03/07/20 03/07/20 [Vitamin D3] Cyanocobalamin/Folic AC/Vit B6 1 tab PO DAILY 03/07/20 03/07/20 [Folbee Tablet] Cyclobenzaprine [Flexeril] 10 mg PO QPM PRN 03/07/20 03/07/20 Fluconazole 200 mg PO BID 03/07/20 03/07/20 Gabapentin 100 mg PO BID 03/07/20 03/07/20 Glucosamine Sulfate Dipot Chlr 1,500 mg PO DAILY 03/07/20 03/07/20 [Glucosamine Sulfate] Lidocaine [Aspercreme Lidocaine] 1 patch TOP Q12H PRN 03/07/20 03/07/20 Multivit,Iron,Mins/Folic Acid 1 tab PO DAILY 03/07/20 03/07/20 [Centrum Special[facility] Heart Tab] Acetaminophen [Tylenol Extra 1,000 mg PO BID PRN #0 03/09/20 03/07/20 Strength] SUMAtriptan [Imitrex] 25 mg PO ONCE #30 tablet 03/09/20 - PHYSICAL EXAM AT DISCHARGE General Appearance: positive: Alert (sitting up in chair legs crossed, reading the newspaper, engaged in brief"disagreement" with ), Other (General; see progress note for exam from earlier in day. In early evening patients alertness, participation, cognition (although not at baseline) markedly improved. (and headache much improved after dose of imitrex). Per OT patient did well in eval today (~ 2 hrs prior patient would not work w/PT) Eyes Bilateral: positive: PERRL, EOMI ENT: positive: Dry mucous membranes Neck: positive: Other (moves freely) Respiratory: positive: No respiratory distress, Breath sounds nml, Other (no cough) Cardiovascular: positive: Regular rate & rhythm, No murmur, Other (R chest infusaport, site unremarkable) Peripheral Pulses: positive: 2+ Abdomen: positive: Nml bowel sounds, No distention, Other (adult pad on). negative: Tenderness Skin: positive: Warm, Dry Extremities: negative: Pedal edema Neurologic/Psychiatric: positive: Other (patient slow to come up with 2020 (but does, somewhat participative in d/c discussion (was able to follow discussion better)). negative: Oriented x3 (oriented to place, person, takes some time to come up with answrs but much better, tangential in responses, Not yet at baseline but improved) - LABS Result Diagrams: 03/09/20 06:45 03/09/20 06:45 - DIAGNOSTIC IMAGING Diagnostic Imaging Results: Final report reviewed Diagnostic Imaging Results Comments: CT head 03/06 Mild motion artifact , No acute intracranial abnormality, Moderate volume loss, mild-mod Chronic white matter small vessel ischemic changes Chest CT 03/06; no acute finding, no infiltrate, no effusion no bony lesion 7mm L lung base nodule, 4 mm RML nodule, scattered RLL sub cm nodules. Portacath tip R chest in cavoatrial junction
== END 2020-03-09 18:47 | disposition home or self-care (01) | DRG 947 ==
LOC: ED 12:38 → MS2 19:26 → OBSVTOIN 03-08 07:48
PROVIDERS: ADMIT Internal Medicine; ATTEND Nurse Practitioner
DX: R53.1 Weakness (principal); S09.90XA Unspecified injury of head, initial encounter; W06.XXXA Fall from bed, initial encounter; E43 Unspecified severe protein-calorie malnutrition; R45.1 Restlessness and agitation; R50.9 Fever, unspecified; R41.0 Disorientation, unspecified; T40.2X5A Adverse effect of other opioids, initial encounter; R19.7 Diarrhea, unspecified; Z92.21 Personal history of antineoplastic chemotherapy; R53.83 Other fatigue; R10.9 Unspecified abdominal pain; R11.0 Nausea; R51 Headache; G89.29 Other chronic pain; M54.9 Dorsalgia, unspecified; D46.9 Myelodysplastic syndrome, unspecified; D69.6 Thrombocytopenia, unspecified; N40.0 Benign prostatic hyperplasia without lower urinary tract symptoms; Z85.79 Personal history of other malignant neoplasms of lymphoid, hematopoietic and related tissues; Z91.81 History of falling; Z51.5 Encounter for palliative care; G62.9 Polyneuropathy, unspecified
CPT/HCPCS: 36415; 70450; 71260; 74177; 80048; 80053; 81003; 81599; 83605; 83690; 83735; 85025; 87040; 87493; 96361; 96374; 96375; 96376; 97110; 97162; 97164; 97166; 97530; 99233; 99285; A9270; J2060; J7120; J8540; Q9967; U0004; 81001; 87045; 87046; 87086